=== PATIENT | female | born 1940 | race Caucasian/White ===

== ENCOUNTER 2019-04-19 12:22 | Inpatient (IN) | payer MEDICARE, OTHER, SELFPAY ==
[2019-04-19] VITALS (7 sets, daily range): BP systolic 101–117; BP diastolic 51–74; PULSE 51–75; RESP 17–20; TEMP 36.4–36.8; O2SAT 90–98; BMI 24.0
--- NOTE | 2019-04-19 12:27 | ED_ITS ---
Entered by Mima Connolly, acting as scribe for New Johnson DO HPI - General Adult General: Chief complaint: Abdominal Pain Stated complaint: LUNG/STOMACH CA Time Seen by Provider: 04/19/19 12:25 Source: patient Mode of arrival: EMS Limitations: no limitations History of Present Illness: HPI narrative: 78 yo Female presents to ED with complaint of abdominal pain. Pt states that she was taken out of the half-way yesterday by her family because the half-way wasn't taking care of her. Pt states that she has lung cancer and stomach cancer. Pt states that she is still getting radiation and chemotherapy treatments. Pt states that she has had radiation treatment most recently. Pt states that she went into the half-way because she can't walk and she can't breathe. Pt states that she lived at home by herself prior to that. Pt states that she can't live at home anymore. Pt states that she has been running a fever. Pt states that she was in a half-way in [place] and she won't go back there because they weren't taking care of her. Pt states that she wants something to slow her diarrhea. Pt states that she has coughed up some blood. MD complaint: abdominal pain, diarrhea Onset (ago): day(s) Location: abdomen Radiation: non-radiation Severity scale (1-10): 8 Quality: other (chronic) Relieving factors: none Exacerbating factors: none Associated symptoms: Reports dyspnea; Deny chest pain, malaise, nausea, rash or vomiting Treatments prior to arrival: none Review of Systems Const: Reports: fever and chills; Denies: body aches, change in appetite, fatigue or malaise ENMT: Denies: throat pain, ear pain, nasal discharge or nasal congestion Card: Denies: chest pain, edema, shortness of breath on exertion or shortness of breath when lying down Resp: Reports: shortness of breath; Denies: productive cough or non-productive cough GI: Reports: abdominal pain and diarrhea; Denies: nausea, vomiting, vomiting blood, coffee grounds in vomit, constipation, bloating, blood in stool or black tarry stool : Denies: flank pain, difficulty urinating, painful urination, urinary frequency or urinary urgency Skin/Breast: Denies: rash or itching PFSH ED PFSH: Medical History (Updated 04/21/19 @ 14:05 by New Johnson DO) CAD (coronary artery disease) CLL (chronic lymphocytic leukemia) COPD (chronic obstructive pulmonary disease) Lung cancer MELANIA (obstructive sleep apnea) PVD (peripheral vascular disease) Surgical History (Updated 04/19/19 @ 17:26 by Henrry Phelps MD) S/P appendectomy S/P CABG (coronary artery bypass graft) Status post peripheral artery angioplasty with insertion of stent Social History (Updated 04/19/19 @ 17:27 by Henrry Phelps MD) Smoking and tobacco status: former smoker Alcohol intake: never Substance/Drug Use: never Household members: family Housing: House Physical Exam Const: COMMON NORMALS: no apparent distress GENERAL APPEARANCE: cooperative and comfortable ORIENTATION/CONSCIOUSNESS: Yes awake, Yes oriented to person, Yes oriented to place and Yes oriented to time HENMT: COMMON NORMALS: normocephalic, head/scalp atraumatic, hearing grossly normal bilaterally, external ears normal, EAC's normal, TM's normal bilaterally, nasal mucous membranes and turbinates normal, moist oral mucous membranes and oropharynx normal HEAD & SCALP: normocephalic and atraumatic NOSE: nasal mucous membranes and turbinates normal EXTERNAL EAR: Yes external ears normal EXTERNAL AUDITORY CANAL: EAC's normal TYMPANIC MEMBRANE: TM's normal bilaterally Eye: COMMON NORMALS: PERRL, EOMs intact bilaterally, conjunctivae normal and no scleral icterus CONJUNCTIVA: Yes conjunctivae normal PUPIL: Yes PERRL Neck/C-Spine: COMMON NORMALS: full ROM, no lymphadenopathy, supple and no JVD Lymph: LYMPHATIC: no lymphadenopathy noted and no lymphedema noted Resp: COMMON NORMALS: normal respiratory effort, no retractions, no use of accessory muscles and clear to auscultation bilaterally AUSCULTATION: clear to auscultation bilaterally Cardio: COMMON NORMALS: no JVD, regular rate, regular rhythm and no murmurs RATE: regular rate RHYTHM: regular rhythm HEART SOUNDS: murmur systolic Intensity: IV/ GI: COMMON NORMALS: soft to palpation and no hepatosplenomegaly AUSCULTATION: Yes normoactive bowel sounds PALPATION: Yes soft, No tender, No guarding and Yes no hepatosplenomegaly Extremity: COMMON NORMALS: normal to inspection, normal capillary refill, no clubbing, cyanosis or edema, no calf tenderness and no pedal edema Neuro: SENSORIUM/ORIENTATION: Yes oriented to person, Yes oriented to place and Yes oriented to time Skin: COMMON NORMALS: no rashes or lesions noted GENERAL SKIN EXAM: no rashes or lesions noted Course ED course: Work-up shows hilar mass which patient related that she had had. She also has a previous known chronic lymphocytic leukemia. Chest x-ray shows pneumonia will go ahead and admit discussed with hospitalist Consultations: Consultation #1: Dr. Phelps, Hospitalist Time: 14:45 Vital Signs: Vital signs: Vital Signs Temperature 97.3 F L 04/21/19 11:30 Pulse Rate 73 04/21/19 11:30 Respiratory Rate 17 04/21/19 11:41 Blood Pressure 110/61 04/21/19 11:30 Pulse Oximetry 4 L 04/21/19 11:41 MDM - General Adult Lab Data: Labs: Lab Results 04/19/19 04/19/19 04/19/19 Range/Units 13:08 13:25 13:25 WBC 13.4 H (4.0-10.0) 10^3/ uL RBC 3.88 L (4.1-5.3) 10^6/u L Hgb 11.4 L (11.5-15.3) g/dL Hct 36.5 L (37.0-47.0) % MCV 94.1 (81-99) fL MCH 29.4 (28.0-34.0) pg MCHC 31.2 (30.0-36.0) g/dL RDW 16.4 H (12.1-15.1) % Plt Count 278 (130-400) 10^3/c mm MPV 10.5 H (7.4-10.4) fL Neut % (Auto) 88.1 % Lymph % (Auto) 4.2 % [place] % (Auto) 6.9 % Eos % (Auto) 0.1 % Baso % (Auto) 0.3 % Neut # (Auto) 11.8 H (1.8-7.7) 10^3/u L Lymph # (Auto) 0.6 L (0.8-4.8) 10^3/u L [place] # (Auto) 0.9 (0.2-0.9) 10^3/u L Eos # (Auto) 0.0 (0.0-0.8) 10^3/u L Baso # (Auto) 0.0 (0.0-0.1) 10^3/u L Nucleated RBC % (a uto) 0 % Nucleated RBCs # 0.0 /100WBC Sodium 138 (136-145) mmol/L Potassium 4.2 (3.5-5.1) mmol/L Chloride 100 (98-107) mmol/L Carbon Dioxide 26 (22-29) mmol/L Anion Gap 16.2 (5-19) BUN 25 H (8-23) mg/dL Creatinine 0.6 (0.5-0.9) mg/dL Glucose 96 (65-115) mg/dL Calcium 8.3 L (8.5-10.5) mg/dL Iron (37-145) ug/dL TIBC mcg/dl % Saturation (20-50) % Unsat Iron Binding (112-347) ug/dL Total Bilirubin 0.4 (0.15-1.2) mg/dL AST 20 (0-32) U/L ALT 16 (0-33) U/L Alkaline Phosphata se 94 (35-105) IU/L Total Protein 6.0 L (6.6-8.7) g/dL Albumin 2.4 L (3.5-5.2) g/dL Globulin 3.6 (1.3-4.6) g/dL Lipase 3 L (13-60) U/L Procalcitonin (0-0.5) ng/mL Urine Color Yellow (Yellow) Urine Appearance Clear (CLEAR) Urine pH 5.0 (5-7) Ur Specific Gravit y 1.020 (1.005-1.030) Urine Protein Trace (Negative) Urine Glucose (UA) Norm (Normal) Urine Ketones 1+ H (Negative) Urine Blood Neg (Negative) Urine Nitrate Negative (Negative) Urine Bilirubin 1+ H (NEGATIVE) Urine Urobilinogen Norm (Negative) mg/dL Ur Leukocyte Tonie ase Negative (Negative) Urine RBC 0-4 H (0-2) /hpf Urine WBC 0-4 H (0-5) /hpf Ur Squamous Epith Cells 15-25 H (0-5) Urine Bacteria Trace (NONE) Urine Mucus 1+ 02/ Range/Units 13:25 WBC (4.0-10.0) 10^3/ uL RBC (4.1-5.3) 10^6/u L Hgb (11.5-15.3) g/dL Hct (37.0-47.0) % MCV (81-99) fL MCH (28.0-34.0) pg MCHC (30.0-36.0) g/dL RDW (12.1-15.1) % Plt Count (130-400) 10^3/c mm MPV (7.4-10.4) fL Neut % (Auto) % Lymph % (Auto) % [place] % (Auto) % Eos % (Auto) % Baso % (Auto) % Neut # (Auto) (1.8-7.7) 10^3/u L Lymph # (Auto) (0.8-4.8) 10^3/u L [place] # (Auto) (0.2-0.9) 10^3/u L Eos # (Auto) (0.0-0.8) 10^3/u L Baso # (Auto) (0.0-0.1) 10^3/u L Nucleated RBC % (a uto) % Nucleated RBCs # /100WBC Sodium (136-145) mmol/L Potassium (3.5-5.1) mmol/L Chloride (98-107) mmol/L Carbon Dioxide (22-29) mmol/L Anion Gap (5-19) BUN (8-23) mg/dL Creatinine (0.5-0.9) mg/dL Glucose (65-115) mg/dL Calcium (8.5-10.5) mg/dL Iron 12 L (37-145) ug/dL TIBC 116 mcg/dl % Saturation 10.3 L (20-50) % Unsat Iron Binding 104 L (112-347) ug/dL Total Bilirubin (0.15-1.2) mg/dL AST (0-32) U/L ALT (0-33) U/L Alkaline Phosphata se (35-105) IU/L Total Protein (6.6-8.7) g/dL Albumin (3.5-5.2) g/dL Globulin (1.3-4.6) g/dL Lipase (13-60) U/L Procalcitonin 0.90 H (0-0.5) ng/mL Urine Color (Yellow) Urine Appearance (CLEAR) Urine pH (5-7) Ur Specific Gravit y (1.005-1.030) Urine Protein (Negative) Urine Glucose (UA) (Normal) Urine Ketones (Negative) Urine Blood (Negative) Urine Nitrate (Negative) Urine Bilirubin (NEGATIVE) Urine Urobilinogen (Negative) mg/dL Ur Leukocyte Tonie ase (Negative) Urine RBC (0-2) /hpf Urine WBC (0-5) /hpf Ur Squamous Epith Cells (0-5) Urine Bacteria (NONE) Urine Mucus Imaging Data^: CXR: Radiologist's impression: [place] [address] XRay Report Signed Patient: Ayala Kulkarni #: [id number] : 3Acct#:[id number] Age/Sex: 78 / FADM Date: 04/19/19 Loc: ERRoom/Bed: Attending Dr: Ordering Provider/Ordering MD: New Johnson DO Date of Service: 04/19/19 Procedure(s): XR chest 1V portable 32019 Accession Number(s): [id number] Report Number: [id number] WS: [id number] XR chest 1V portable [id number] REASON FOR EXAM: dyspnea/cough FINDINGS: An infiltrate is seen in the left lower lung extends to the periphery. Not seen on previous exam of October 23, 2016. There is coronary bypass changes noted. There is mild scoliotic curve convex to the left. XR/XR chest 1V portable [id number] IMPRESSION: Pneumonia left lower lung Dictated By:Renny Izaguirre DO Signed By:Renny Izaguirre DOSigned Date/Time:04/19/191314 DD/ 14 CTA Chest: Radiologist's impression: [place] [address] CT Scan Report Signed with Addenda Patient: Ayala Kulkarni #: [id number] : 3Acct#:[id number] Age/Sex: 78 / FADM Date: 04/19/19 Loc: [facility]/Bed: 259-[address]: Henrry Phelps MD Ordering Provider/Ordering MD: New Johnson DO Date of Service: 04/19/19 Procedure(s): CT angio chest PE protcl [id number] Accession Number(s): [id number] Report Number: [id number]/CT angio chest PE protcl [id number] CRITICAL RESULT: The study was personally discussed on the telephone with New Zaragoza on 04/19/2019 4:22 PM [facility]. The results were understood and acknowledged. Radiation Dose CTDIVOL = (mGy): DLP = 513.99 (mGy-cm) Addendum Dictated By: Lana Ferris MD Addendum Signed By: Lana Ferris MDSigned Date/Time:04/19/19 162 Addendum Cosigned By: PROCEDURE INFORMATION: Exam: CT Angiography Chest With Contrast Exam date and time: 04/19/2019 3:00 PM Age: 78 years old Clinical indication: Shortness of breath; Prior surgery; Surgery date: 6+ months; Surgery type: Aaa. Cabg; Additional info: Chest pain, dyspnea TECHNIQUE: Imaging protocol: Computed tomographic angiography of the chest with intravenous contrast. 3D rendering: MIP and/or 3D reconstructed images were created by the technologist. Total DLP: 513.99 mGy-cm Radiation optimization: All CT scans at this facility use at least one of these dose optimization techniques: automated exposure control; mA and/or kV adjustment per patient size (includes targeted exams where dose is matched to clinical indication); or iterative reconstruction. Contrast material: OMNI 350; Contrast volume: 95 ml; Contrast route: LT AC; COMPARISON: CT Chest/Abdomen/Pelvis wwo 04/02/2014 2:12 PM FINDINGS: Pulmonary arteries: Normal. No pulmonary emboli. Aorta: Unremarkable. No aortic aneurysm. No aortic dissection. Lungs: There are centrilobular and paraseptal emphysematous changes in the bilateral lungs. Multifocal pulmonary consolidation in the right upper and left lower lobes, consistent with pneumonia. This is most prominent in the left lower lobe. There is mucous plugging of bilateral lower lobe bronchi. Pleural space: Unremarkable. No pneumothorax. No pleural effusion. Heart: Cardiomegaly. There is reflux of contrast into the hepatic veins consistent with right heart strain. Multivessel atherosclerotic disease which involves the coronary arteries. Mediastinum: There are posterior sternotomy changes and postoperative changes in the mediastinum. There is a mediastinal/left perihilar mass lesion measuring 7.2 by 4.2 cm in the transverse/AP dimensions. This mass lesion effaces the left mainstem bronchus without definite invasion. This lesion cannot be differentiated from the adjacent left side of the esophageal mucosa. Liver: There is periportal edema which can be seen with volume overload, hepatitis, or cholangitis. Kidneys and ureters: Visualized aspect of the left kidney is atrophic. Stomach and bowel: There are air-fluid levels in dilated small bowel loops in the visualized upper abdomen consistent with small bowel obstruction. Lymph nodes: Unremarkable. No enlarged lymph nodes. Bones/joints: Unremarkable. No acute fracture. Soft tissues: Unremarkable. CT/CT angio chest PE protcl [id number] IMPRESSION: 1. There is a mediastinal/left perihilar mass lesion which cannot be differentiated from the left side of the esophagus most consistent with neoplasm. 2. Bilateral lung pneumonia. There is mucous plugging in lower lobe bronchi. 3. Cardiomegaly with signs of right heart strain. 4. There is periportal edema which can be seen with volume overload, hepatitis, or cholangitis. 5. There are air-fluid levels in dilated small bowel loops in the visualized upper abdomen consistent with small bowel obstruction. Radiation Dose CTDIVOL = (mGy): DLP = 513.99 (mGy-cm) Dictated By:Lana Ferris MD Signed By:Lana Ferrisigned Date/Time:04/19/191616 DD/ 15 Discharge Plan Discharge Patient Disposition: Admitted As Inpatient Admit Provider: Henrry Phelps Clinical Impression: Pneumonia, CLL (chronic lymphocytic leukemia), Lung cancer, COPD (chronic obstructive pulmonary disease), MELANIA (obstructive sleep apnea), Diarrhea Condition: Stable Interventions: ED Discharge Assessment Last Done: 04/19/19 16:23 Discharge Date/Time: 04/19/19 16:52 Coding Level of Care Code ED [employer] Services Officer for Chg Fwd Exam Comprehensive The documentation recorded by the Cathleen roman Carmen, accurately reflects the service I personally performed and the decisions made by Elizabeth miguel Curtis L, DO Apr 19, 2019 12:22
--- NOTE | 2019-04-19 13:00 | XR_ITS ---
WS: [id number] XR chest 1V portable [id number] REASON FOR EXAM: dyspnea/cough FINDINGS: An infiltrate is seen in the left lower lung extends to the periphery. Not seen on previous exam of October 23, 2016. There is coronary bypass changes noted. There is mild scoliotic curve convex to the left. XR/XR chest 1V portable [id number] IMPRESSION: Pneumonia left lower lung
[2019-04-19] MEDS: ondansetron 2 mg/ML SDV 2 mL 4 MG IVP (13:11)
[2019-04-19] MEDS: diphenoxylate/atropine Tablet 1 TAB PO (13:12)
[2019-04-19] MEDS: sodium chloride 0.9% 500 ML 999 ML IV (13:13)
[2019-04-19 13:34] LABS: Basophils % 0.3 %; Eosinophils % 0.1 %; Hematocrit 36.5 % (37.0-47.0); Hemoglobin 11.4 g/dL (11.5-15.3); Lymphocytes # 0.6 10^3/uL (0.8-4.8); Lymphocytes % 4.2 %; Mean Corpuscular HGB Conc 31.2 g/dL (30.0-36.0); Mean Corpuscular Hemoglobin 29.4 pg (28.0-34.0); Mean Corpuscular Volume 94.1 fL (81-99); Mean Platelet Volume 10.5 fL (7.4-10.4); Monocytes # 0.9 10^3/uL (0.2-0.9); Monocytes % 6.9 %; Neutrophils # 11.8 10^3/uL (1.8-7.7); Neutrophils % 88.1 %; Nucleated Red Blood Cells % 0 %; Platelet Count 278 10^3/cmm (130-400); Red Blood Count 3.88 10^6/uL (4.1-5.3); Red Cell Distribution Width 16.4 % (12.1-15.1); White Blood Count 13.4 10^3/uL (4.0-10.0)
[2019-04-19 13:44] LABS: Urine Appearance Clear (CLEAR); Urine Color Yellow (Yellow)
[2019-04-19 13:45] LABS: Add Urine Microscopic? YES; Bilirubin Urine 1+ (NEGATIVE); Blood Urine Neg (Negative); Glucose Urine UA Norm (Normal); Ketones Urine 1+ (Negative); Leukocyte Esterase Urine Negative (Negative); Nitrate Urine Negative (Negative); Protein Urine Trace (Negative); Urobilinogen Urine Norm (Negative)
[2019-04-19 13:52] LABS: Add Urine Culture? No; Bacteria Urine TRACE; Mucus Urine 1+; RBC Urine 0-4 /hpf (0-2); Squamous Epithelial Cell Urine 15-25 (0-5); WBC Urine 0-4 /hpf (0-5)
[2019-04-19 13:54] LABS: Alanine Aminotransferase 16 U/L (0-33); Albumin Level 2.4 g/dL (3.5-5.2); Alkaline Phosphatase 94 IU/L (35-105); Anion Gap 16.2 (5-19); Aspartate Amino Transferase 20 U/L (0-32); Blood Urea Nitrogen 25 mg/dL (8-23); Calcium 8.3 mg/dL (8.5-10.5); Carbon Dioxide 26 mmol/L (22-29); Chloride 100 mmol/L (98-107); Globulin 3.6 g/dL (1.3-4.6); Glucose 96 mg/dL (65-115); Lipase 3 U/L (13-60); Potassium 4.2 mmol/L (3.5-5.1); Sodium 138 mmol/L (136-145); Total Bilirubin 0.4 mg/dL (0.15-1.2)
[2019-04-19] MEDS: piperacillin-tazobactam 3.375 GM in sodium chloride 0.9% (plus) 50 ML IV ×2 (14:23→21:58)
[2019-04-19] MEDS: morphine 4 mg/mL SDV 1 mL 2 MG IVP ×2 (14:24→16:44)
--- NOTE | 2019-04-19 14:32 | CTR_ITS ---
PROCEDURE INFORMATION: Exam: CT Angiography Chest With Contrast Exam date and time: 04/19/2019 3:00 PM Age: 78 years old Clinical indication: Shortness of breath; Prior surgery; Surgery date: 6+ months; Surgery type: Aaa. Cabg; Additional info: Chest pain, dyspnea TECHNIQUE: Imaging protocol: Computed tomographic angiography of the chest with intravenous contrast. 3D rendering: MIP and/or 3D reconstructed images were created by the technologist. Total DLP: 513.99 mGy-cm Radiation optimization: All CT scans at this facility use at least one of these dose optimization techniques: automated exposure control; mA and/or kV adjustment per patient size (includes targeted exams where dose is matched to clinical indication); or iterative reconstruction. Contrast material: OMNI 350; Contrast volume: 95 ml; Contrast route: LT AC; COMPARISON: CT Chest/Abdomen/Pelvis wwo 04/02/2014 2:12 PM FINDINGS: Pulmonary arteries: Normal. No pulmonary emboli. Aorta: Unremarkable. No aortic aneurysm. No aortic dissection. Lungs: There are centrilobular and paraseptal emphysematous changes in the bilateral lungs. Multifocal pulmonary consolidation in the right upper and left lower lobes, consistent with pneumonia. This is most prominent in the left lower lobe. There is mucous plugging of bilateral lower lobe bronchi. Pleural space: Unremarkable. No pneumothorax. No pleural effusion. Heart: Cardiomegaly. There is reflux of contrast into the hepatic veins consistent with right heart strain. Multivessel atherosclerotic disease which involves the coronary arteries. Mediastinum: There are posterior sternotomy changes and postoperative changes in the mediastinum. There is a mediastinal/left perihilar mass lesion measuring 7.2 by 4.2 cm in the transverse/AP dimensions. This mass lesion effaces the left mainstem bronchus without definite invasion. This lesion cannot be differentiated from the adjacent left side of the esophageal mucosa. Liver: There is periportal edema which can be seen with volume overload, hepatitis, or cholangitis. Kidneys and ureters: Visualized aspect of the left kidney is atrophic. Stomach and bowel: There are air-fluid levels in dilated small bowel loops in the visualized upper abdomen consistent with small bowel obstruction. Lymph nodes: Unremarkable. No enlarged lymph nodes. Bones/joints: Unremarkable. No acute fracture. Soft tissues: Unremarkable. CT/CT angio chest PE protcl [id number] IMPRESSION: 1. There is a mediastinal/left perihilar mass lesion which cannot be differentiated from the left side of the esophagus most consistent with neoplasm. 2. Bilateral lung pneumonia. There is mucous plugging in lower lobe bronchi. 3. Cardiomegaly with signs of right heart strain. 4. There is periportal edema which can be seen with volume overload, hepatitis, or cholangitis. 5. There are air-fluid levels in dilated small bowel loops in the visualized upper abdomen consistent with small bowel obstruction. Radiation Dose CTDIVOL = (mGy): DLP = 513.99 (mGy-cm)
[2019-04-19] MEDS: levofloxacin-dextrose 5 % 750 MG/150 ML PREMIX 150 MG IV (14:50)
[2019-04-19] MEDS: iohexol 350 mg/mL 100 mL Btl IV (15:49)
[2019-04-19 16:16] LABS: Iron 12 ug/dL (37-145); Percent Saturation 10.3 % (20-50); Total Iron Binding Capacity 116 mcg/dl; Unsaturated Iron Binding 104 ug/dL (112-347)
[2019-04-19 16:26] LABS: Influenza A by IFA Negative (Negative); Influenza B by IFA Negative (Negative)
--- NOTE | 2019-04-19 17:09 | PM.HP ---
Providers/Chief Complaint Admitting Physician: Henrry Phelps MD Chief Complaint: LUNG/STOMACH CA History of Present Illness Ayala Kulkarni is a 78 year old female with past medical history of CAD post multiple PCI and CABG, peripheral arterial disease both peripheral angioplasty, COPD, obstructive sleep apnea, hypertension, CLL, hypothyroidism, dyslipidemia, fibromyalgia who as per the family was recently diagnosed of a lung cancer 1 month ago and is undergoing chemotherapy post 2 cycles with last cycle 3 weeks ago, radiation therapy post 5 cycles will last treatment 2 days ago at [facility]. As per the family patient was at a senior living in [place]. 2 days ago from where she was discharged as per family's request and was brought home at the think she was not being properly taken care of at the facility. Patient's sister who is her caregiver and POA brought her to the ER today as she was not able to take care of her at home. As per patient she has been getting more and more weak progressively for last 7 to 10 days and is been getting worse associated with cough with expectoration which as per the patient and family have been stable for last 2 weeks along with shortness of breath on exertion. Expectoration is mostly not foul-smelling yellow-tinged with occasional hemoptysis with last hemoptysis yesterday morning. As per the family patient's appetite has also been very poor along with nausea but no recent vomiting. As per the patient patient is also having multiple episodes of diarrhea which are mostly not foul-smelling, not bloodstained, watery and has been going on for over 10 days along with occasional abdominal pain and abdominal distention. She denies of having any dysuria, headache, palpitations, chest pain, dizziness, loss of consciousness, syncope but has been having mild dizziness on standing up along with some presyncope. Denies of having any recent sick contacts, recent travel, leg pain, leg cramps, swelling in legs. Review of Systems Const: Reports: change in appetite and daytime sleepiness; Denies: fever, chills, body aches, malaise, night sweats, diaphoresis, change in sleep pattern or snoring Eyes: Denies: change in vision, blurry vision, photophobia, eye discomfort or eye discharge ENMT: Denies: throat pain, enlarged tonsils, hoarseness, mouth pain, oral sores/lesions, dry mouth, tinnitus, nasal congestion or post nasal drip Card: Reports: lightheadedness and shortness of breath on exertion; Denies: chest pain, palpitations, irregular heart rhythm, edema, swelling of feet/ankles, syncope, pre-syncope, shortness of breath when lying down, leg pain with exertion or bluish discoloration of hands/feet Resp: Reports: shortness of breath, productive cough and coughing up blood; Denies: non-productive cough, wheezing, stridor, pain on inspiration, change in phlegm color or chest congestion GI: Reports: abdominal pain, nausea, diarrhea and bloating; Denies: vomiting, vomiting blood, coffee grounds in vomit, difficulty swallowing, heartburn/indigestion, constipation, cramping, change in bowel habits, painful bowel movements, blood in stool or black tarry stool : Denies: flank pain, painful urination, urinary frequency, urinary urgency, urinary hesitancy, nighttime urination or blood in urine Musc: Denies: neck pain, back pain, extremity pain, joint pain, joint swelling, redness, joint stiffness or limited range of motion Neuro: Denies: headache, numbness in extremities, weakness in extremities, changes in sensation, lack of coordination, difficulty walking, frequent falls, dizziness, vertigo, confusion, slurred speech, difficulty communicating thoughts or seizure-like activity Psych: Denies: anxiety, depression, mood swings, panic attacks, hopelessness or irritability Endo: Denies: excessive urination, excessive thirst, tired all the time, cold intolerance, excessive sweating, flushing or heat intolerance Rangel/Lymph: Denies: easy bruising or easy bleeding All/Imm: Denies: tongue swelling, facial swelling or acute wheezing Medications/Allergies Home Medications Medication Instructions Recorded Confirmed Last Taken Type albuterol sulfate 1 puff INHALATION Q4H PRN 04/19/19 04/19/19 Unknown History albuterol sulfate 2.5 mg INHALATION Q4H PRN 04/19/19 04/19/19 Unknown History amlodipine 10 mg PO DAILY 04/19/19 04/19/19 Unknown History aripiprazole 2 mg PO DAILY 04/19/19 04/19/19 Unknown History clopidogrel 75 mg PO DAILY 04/19/19 04/19/19 Unknown History diltiazem HCl 120 mg PO DAILY 04/19/19 04/19/19 Unknown History ergocalciferol (vitamin D2) 1,250 mcg PO Q7D 04/19/19 04/19/19 Unknown History fluticasone propion-salmeterol 1 puff INHALATION BID 04/19/19 04/19/19 Unknown History [Advair HFA] hydrocodone-acetaminophen 1 tab PO Q6H PRN 04/19/19 04/19/19 Unknown History isosorbide mononitrate 30 mg PO DAILY 04/19/19 04/19/19 Unknown History levothyroxine 88 mcg PO DAILY 04/19/19 04/19/19 Unknown History lisinopril 10 mg PO DAILY 04/19/19 04/19/19 Unknown History nitroglycerin 0.4 mg SUBLINGUAL Q5M PRN 04/19/19 04/19/19 Unknown History pantoprazole 40 mg PO BID 04/19/19 04/19/19 Unknown History potassium chloride 20 meq PO DAILY 04/19/19 04/19/19 Unknown History ranolazine 500 mg PO BID 04/19/19 04/19/19 Unknown History rosuvastatin 10 mg PO DAILY 04/19/19 04/19/19 Unknown History venlafaxine 100 mg PO DAILY 04/19/19 04/19/19 Unknown History Allergies Allergy/AdvReac Type Severity Reaction Status Date / Time atorvastatin [From Lipitor] Allergy Unknown Unknown Verified 03/18/19 09:30 codeine Allergy Unknown unknown Verified 03/18/19 09:30 PFSH Acute PFSH: Medical History (Updated 04/19/19 @ 17:26 by Henrry Phelps MD) CAD (coronary artery disease) CLL (chronic lymphocytic leukemia) COPD (chronic obstructive pulmonary disease) Lung cancer MELANIA (obstructive sleep apnea) PVD (peripheral vascular disease) Surgical History (Updated 04/19/19 @ 17:26 by Henrry Phelps MD) S/P appendectomy S/P CABG (coronary artery bypass graft) Status post peripheral artery angioplasty with insertion of stent Social History (Updated 04/19/19 @ 17:27 by Henrry Phelps MD) Smoking and tobacco status: former smoker Alcohol intake: never Substance/Drug Use: never Household members: family Housing: House Vitals/I&O/Wt Last Vital Signs Temp 97.6 F 04/19/19 12:31 Pulse 72 04/19/19 16:23 Resp 17 04/19/19 16:44 BP 114/51 04/19/19 16:23 Pulse Ox 97 04/19/19 16:44 Weight last 48 hrs Weight 61.689 kg Physical Exam Narrative: EXAM NARRATIVE: General: No acute distress, AO x3, dehydrated HEENT: PERRLA, pupils bilaterally equal and reactive Chest: b/l bronchial breath sounds, Ant> POst, Left more thn right, Left upper zone and right lower zone and left lower zone with coarse crackles, Normal vesicular breath sounds, no added sounds, equal good air entry bilaterally CVS: S1-S2 regular,PSM at apex, apex displaced, no tachycardia, no gallops, no rubs Abdomen: Soft, distended, nontender, no organomegaly, bowel sounds present Neuro: No focal deficits, no facial deformity, AO x3, power 5/5 in all limbs Data : 04/19/19 13:25 04/19/19 13:25 Micro: Microbiology 04/19/19 15:39 Legionella Urinary Antigen - Final Urine Catheterized 04/19/19 15:08 Stool Lactoferrin - Final Stool Occult Blood (FIT) - Final 04/19/19 15:30 Blood Culture - Preliminary Blood SPECIMEN COLLECTED 04/19/19 15:30 Blood Culture - Preliminary Blood SPECIMEN COLLECTED A&P Assessment and plan (1) Weakness: Status: Acute Code(s): R53.1 - Weakness (2) Diarrhea: Status: Acute Code(s): R19.7 - Diarrhea, unspecified (3) Lung cancer: Status: Acute Code(s): C34.90 - Malignant neoplasm of unspecified part of unspecified bronchus or lung (4) COPD (chronic obstructive pulmonary disease): Status: Acute Code(s): J44.9 - Chronic obstructive pulmonary disease, unspecified (5) MELANIA (obstructive sleep apnea): Status: Acute Code(s): G47.33 - Obstructive sleep apnea (adult) (pediatric) (6) CAD (coronary artery disease): Status: Acute Code(s): I25.10 - Atherosclerotic heart disease of [place] coronary artery without angina pectoris (7) CLL (chronic lymphocytic leukemia): Status: Acute Code(s): C91.10 - Chronic lymphocytic leukemia of B-cell type not having achieved remission Additional A&P Information Weakness: Most likely multifactorial. Cannot rule out pneumonia given the history of recent lung cancer for which she is getting chemo and radiation therapy. Along with multiple episodes of diarrhea, generalized severe deconditioning, severe protein energy malnutrition. Diarrhea: Infectious vs 2/2 chemo-radiation Send stool studies for lactoferrin, stool for occult blood, C. difficile, enteric panel for bacteria and parasite. IV fluids at 100 cc/h with normal saline. If C. difficile is negative can give her Imodium. Possible pneumonia/recent diagnosis of lung cancer/COPD: We will need to get documents from [facility] regarding her diagnosis, chemoradiation therapy. Patient already received Zosyn and levofloxacin in the ER. We will stop levofloxacin. We will start patient on vancomycin as patient was recently hospitalized, Zosyn, azithromycin on renally dosed. Blood cultures already sent. We will also send for urine Legionella, procalcitonin, bacterial antigen in the urine, lactate with reflex, sputum culture and antigen. We will request for CT chest with contrast given the hemoptysis to rule out any mass invasion into the bronchus versus mass-effect versus mucous plugs versus multiple infiltrates. DuoNeb's [id number], budesonide twice daily, albuterol as needed every 2 hours. We will de-escalate antibiotics as per the culture results. Oxygen supplementation keeping saturation over 90%. CAD: S/P CABG and multiple PCI: Continue with home dose of statin, aspirin. Will get echocardiogram to get ejection fraction in view of recent chemo-radiation therapy. Hypertension: For now we will hold off on all antihypertensives to prevent hypotension as patient looks severely dehydrated.. We will continue Cardizem but will change it in 2 divided doses every 6 hours to avoid tachycardia. Telemetry monitoring. Severe protein energy malnutrition: We will add Glucerna to the diet with every meals. Dietary consultation. CC consult: For SNF placement as sister is not able to take care of her at home. CODE STATUS: Discussed in detail with the patient and family members at bedside. Patient states she would like to be DNR/DNI. Her sister would be her POA. Cardiac diet. Lovenox for DVT prophylaxis. Protonix for the PUD prophylaxis Attestations Medical Necessity Statement*: > 2MN for severe weakness, diarrhea, lung cancer, possible PNA Time Spent in Patient Care: Greater than 35 minutes (>than 50% of time spent in counselling and/or direct pt care on unit). Coding Level of Care Code Acute Client Consultant for Chg Fwd Diagnoses Weakness R53.1 Diarrhea R19.7 Lung cancer C34.90 COPD (chronic obstructive pulmonary disease) J44.9 MELANIA (obstructive sleep apnea) G47.33 CAD (coronary artery disease) I25.10 CLL (chronic lymphocytic leukemia) C91.10
[2019-04-19] MEDS: D5-NS 0.45% + KCL 20 mEq 20 MEQ/1,000 ML BAG 100 MEQ IV (17:21)
--- NOTE | 2019-04-19 18:01 | PC.NURSE ---
Home medications: List is completed as best as it can be. Pt has recently left a intermediate, [facility], in [place] per family. They stated she took her medications there. Medical power of document review attorney, Latrice Jimenez, sister, unable to clarify pt's medications , or what has been taken yesterday or today. Pt hard of hearing and a poor historian as well
[2019-04-19] MEDS: sodium chloride 3.5% neb 4 mL Neb INHALATION (20:21)
[2019-04-19] MEDS: budesonide 0.5 mg/2 mL Neb INHALATION (20:21)
[2019-04-19] MEDS: ipratropium-albuterol 3 mL Neb INHALATION (20:21)
[2019-04-19] MEDS: dilTIAZem 30 mg Tablet PO (20:33)
[2019-04-19] MEDS: enoxaparin 40 mg/0.4 mL Syringe SUBCUT (20:33)
[2019-04-19] MEDS: HYDROcodone-acetaminophen 10-325 mg Tablet 1 TAB PO (20:33)
[2019-04-19] MEDS: docusate sodium 100 mg Capsule PO (20:33)
[2019-04-19] MEDS: sodium chloride 0.9% 1,000 ML 75 ML IV (20:34)
[2019-04-19] MEDS: famotidine 20 mg/2 mL INJ IVP (20:35)
[2019-04-19] MEDS: vancomycin 1,000 MG in sodium chloride 0.9% 250 ML 250 MG IV (20:49)
--- NOTE | 2019-04-19 22:27 | PC.NURSE ---
patient up to bsc, noted fresh red blood when cleaning her. upon further assessment noted 3 hemmorrhoids protruding from her rectum slightly bleeding. Notified Dr. Felix and asked for some preparation H to apply to her rectum, she agreed.
[2019-04-19] MEDS: phenyleph-mineral oil-petrolat Oint 28 gm 1 APPLIC PR (22:51)
[2019-04-20] VITALS (14 sets, daily range): BP systolic 103–125; BP diastolic 64–86; PULSE 57–92; RESP 16–21; TEMP 36.3–36.6; O2SAT 91–96
[2019-04-20] MEDS: dilTIAZem 30 mg Tablet PO ×4 (02:14→20:17)
[2019-04-20] MEDS: HYDROcodone-acetaminophen 10-325 mg Tablet 1 TAB PO ×3 (02:14→20:18)
--- NOTE | 2019-04-20 02:33 | PC.NURSE ---
The last two bowel movements the patient has had have been yellowish brown, mucoid, liquid with a very raunchy odor. contacting Dr. Varela to see if we can get an order for a stool sample.
[2019-04-20] MEDS: ipratropium-albuterol 3 mL Neb INHALATION ×4 (03:48→20:45)
[2019-04-20] MEDS: sodium chloride 3.5% neb 4 mL Neb INHALATION ×4 (03:48→20:45)
[2019-04-20] MEDS: piperacillin-tazobactam 3.375 GM in sodium chloride 0.9% (plus) 50 ML IV ×3 (05:17→20:17)
[2019-04-20 05:58] LABS: Basophils % 0.3 %; Hematocrit 35.9 % (37.0-47.0); Hemoglobin 11.4 g/dL (11.5-15.3); Lymphocytes # 0.8 10^3/uL (0.8-4.8); Lymphocytes % 6.2 %; Mean Corpuscular HGB Conc 31.8 g/dL (30.0-36.0); Mean Corpuscular Hemoglobin 29.9 pg (28.0-34.0); Mean Corpuscular Volume 94.2 fL (81-99); Mean Platelet Volume 11.2 fL (7.4-10.4); Monocytes # 1.2 10^3/uL (0.2-0.9); Monocytes % 9.5 %; Neutrophils # 10.4 10^3/uL (1.8-7.7); Neutrophils % 83.6 %; Nucleated Red Blood Cells % 0 %; Platelet Count 234 10^3/cmm (130-400); Red Blood Count 3.81 10^6/uL (4.1-5.3); Red Cell Distribution Width 16.7 % (12.1-15.1); White Blood Count 12.5 10^3/uL (4.0-10.0)
[2019-04-20] MEDS: morphine 4 mg/mL SDV 1 mL 2 MG IVP ×4 (06:21→21:35)
[2019-04-20 07:37] LABS: Alanine Aminotransferase 16 U/L (0-33); Albumin Level 2.5 g/dL (3.5-5.2); Alkaline Phosphatase 103 IU/L (35-105); Anion Gap 20.4 (5-19); Blood Urea Nitrogen 19 mg/dL (8-23); Carbon Dioxide 19 mmol/L (22-29); Chloride 102 mmol/L (98-107); Globulin 2.8 g/dL (1.3-4.6); Glucose 68 mg/dL (65-115); Magnesium 1.7 mg/dL (1.7-2.3); Potassium 4.4 mmol/L (3.5-5.1); Sodium 137 mmol/L (136-145); Total Bilirubin 0.3 mg/dL (0.15-1.2); Total Protein 5.3 g/dL (6.6-8.7)
[2019-04-20 07:39] LABS: Aspartate Amino Transferase 23 U/L (0-32)
[2019-04-20 08:00] LABS: Thyroid Stimulating Hormone 12.43 uIU/mL (0.27-4.20)
[2019-04-20 08:15] LABS: Prealbumin 7.2 mg/dL (20-40)
[2019-04-20] MEDS: budesonide 0.5 mg/2 mL Neb INHALATION ×2 (08:49→20:45)
[2019-04-20] MEDS: famotidine 20 mg/2 mL INJ IVP ×2 (09:06→20:21)
[2019-04-20] MEDS: nicotine 21 mg Patch 1 PATCH TRANSDERMA (09:07)
[2019-04-20] MEDS: clopidogrel 75 mg Tablet PO (09:07)
[2019-04-20] MEDS: levothyroxine 88 mcg Tablet PO (09:07)
[2019-04-20] MEDS: ARIPiprazole 2 mg Tablet PO (09:07)
[2019-04-20] MEDS: ranolazine (12HR) 500 mg Tablet PO ×2 (09:07→17:28)
[2019-04-20] MEDS: phenyleph-mineral oil-petrolat Oint 28 gm 1 APPLIC PR ×4 (09:08→20:20)
[2019-04-20] MEDS: azithromycin 500 MG in sodium chloride 0.9% 250 ML 250 MG IV (09:08)
[2019-04-20] MEDS: sodium chloride 0.9% 1,000 ML 75 ML IV ×2 (09:08→23:07)
--- NOTE | 2019-04-20 12:02 | PC.CHAP ---
Pastoral Care Encounter/Spiritual Assessment Type of Contact [] Declined shield operator visit [] Patient/Family/Request visit [] Outpatient visit [] Follow-up visit [] Physician referral [] Code/Alert [] Routine visit [] Staff referral [] Actively dying [] Patient sleeping [] Family support [] [] Out of room [] Palliative care [] [] Receiving care in room [] Pre-surgical visit [] Trauma [] Long length of stay [] ICU visit [] Other: Relational/Emotional Strength [x] Patient feels connected with others/family/visitors/staff [] Distress [] Loneliness/isolation [] Abandonment Spirituality of Patient [x] Person of Arianna [] Attends Yazidi of their Arianna [x] Believes in Prayer [] Reads Bible or Quaker materials [] There are Spiritual issues to be addressed Raisin Washer Interventions x] Prayer [x] Active listening [x] Non-anxious presence [x] Spiritual/emotional support [] Crisis/trauma care [] Spiritual counseling [] Bereavement support [] Provided bereavement packet [] Provided Bible/devotional materials [] Provided toy/stuffed animal, coloring book to patient or family member [] Provided Communion [] Anointing/[place] [] Salvation [] Completed spiritual assessment [] Other: Impact on Illness or Injury [] Angry [] Fearful [] Anxious [] Often cries [] Exhaustion [] Unable to work [] Unable to attend jew [] Unable to walk/stand [] Unable to read [] Unable to drive [] Unable to eat/drink [] Unable to sleep [] Unable to be with family [] Patient intubated [] Other: Summary Chaplains prayed with patient. Time spent with patient 15 minutes.
[2019-04-20] MEDS: vancomycin 1,000 MG in sodium chloride 0.9% 250 ML 250 MG IV (12:29)
--- NOTE | 2019-04-20 12:38 | CTR_ITS ---
PROCEDURE INFORMATION: Exam: CT Abdomen And Pelvis With Contrast Exam date and time: 04/20/2019 4:40 PM Age: 78 years old Clinical indication: Abdominal pain; Generalized; Prior surgery; Surgery date: 6+ months; Surgery type: Cabg, aaa, appy; Additional info: R/O sbo, diarrhea, on radition therapy TECHNIQUE: Imaging protocol: Computed tomography of the abdomen and pelvis with intravenous contrast. Total DLP: 763.05 mGy-cm Radiation optimization: All CT scans at this facility use at least one of these dose optimization techniques: automated exposure control; mA and/or kV adjustment per patient size (includes targeted exams where dose is matched to clinical indication); or iterative reconstruction. Contrast material: OMNI 300; Contrast volume: 95 ml; Contrast route: LT AC; COMPARISON: CT abdomen pelvis w con* [id number] 11/28/2017 10:56 AM FINDINGS: Lungs: There is a partially visualized masslike lesion along the posterior medial aspect of the left lung base. Adjacent patchy lung consolidation is consistent with pneumonia.Streaky densities at the lung bases are most consistent with scarring and/or atelectasis. Mediastinum: There are post sternotomy changes and postoperative changes in the anterior mediastinum. Liver: There is periportal edema which can be seen with volume overload, hepatitis, or cholangitis. Gallbladder and bile ducts: The gallbladder has been removed. Pancreas: Normal. No ductal dilation. Spleen: Normal. No splenomegaly. Adrenals: Normal. No mass. Kidneys and ureters: Left kidney is atrophic. There is a subcentimeter cyst in the left kidney with benign features. Follow-up is not necessary. Stomach and bowel: There are air-fluid levels in multiple dilated proximal and mid small bowel loops consistent with small bowel obstruction. Distal small bowel is collapsed. There is a small amount of air and fluid scattered throughout the colon. A small amount of air and stool is present in the rectal vault. Appendix: There has been an appendectomy. Intraperitoneal space: There is a small amount of free intraperitoneal fluid. Vasculature: Aorta bi-iliac endograft stent. 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 Multivessel atherosclerotic disease which involves the coronary arteries. Lymph nodes: Unremarkable. No enlarged lymph nodes. Bladder: Unremarkable as visualized. Reproductive: Unremarkable as visualized. Bones/joints: Unremarkable. No acute fracture. Soft tissues: Small fat containing periumbilical hernia. CT/CT abdomen pelvis w con* [id number] IMPRESSION: 1. Findings as stated above are consistent with a distal small-bowel obstruction. 2. There is left lower lobe pneumonia. A partially visualized masslike lesion is present at the posterior medial aspect of the left lung base. This was more optimally visualized on the prior CT chest angiogram. Please see that report. 3. Aorta bi-iliac endograft stent. 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 COMMENTS: Consistent with the [employer]'s Incidental Findings Committee white paper (J Am Derick Radiol 2018): Any incidental cystic renal lesion classified in this report as too small to characterize or simple appearing is likely a benign cyst. No follow-up imaging is recommended for these lesions per consensus recommendations based on imaging criteria. Radiation Dose CTDIVOL = (mGy): DLP = 763.05 (mGy-cm)
[2019-04-20 13:37] LABS: Free T4 Free Thyroxine 0.54 ng/dL (0.82-1.77); T3 Free 0.9 PG/ML (2.0-4.4)
--- NOTE | 2019-04-20 15:49 | PM.PN ---
Subjective Subjective: Interval history: No acute events overnight. This morning on evaluation patient is lying in bed complaining of pain in her back. She is also complaining of pain in her belly which she states has been going on for some time. She complains of nausea but no vomiting. She has had 2 episodes of watery diarrhea since last night. She denies of having any dizziness. She is also complaining of cough with mild expectoration but has not gotten worse. Labs, CT chest results appreciated. Documents from [facility] regarding previous hospitalization still awaited. Vitals/I&O/Wt Last Vital Signs Temp 97.4 F L 04/20/19 11:40 Pulse 81 04/20/19 15: Resp 16 04/20/19 15:19 BP 125/86 04/20/19 11:40 Pulse Ox 96 04/20/19 15:19 04/20/19 04/20/19 04/20/19 06:59 14:59 22:59 Intake Total 110 / 360 1112.5 / 1112.5 Balance 110 / -90 1112.5 / 1112.5 Weight last 48 hrs Weight 62.284 kg Weight 61.689 kg Physical Exam Narrative: EXAM NARRATIVE: General: No acute distress, AO x3, dehydrated HEENT: PERRLA, pupils bilaterally equal and reactive Chest: b/l bronchial breath sounds, Ant> POst, Left more thn right, Left upper zone and right lower zone and left lower zone with coarse crackles, Normal vesicular breath sounds, no added sounds, equal good air entry bilaterally CVS: S1-S2 regular,PSM at apex, apex displaced, no tachycardia, no gallops, no rubs Abdomen: Soft, distended, nontender, no organomegaly, bowel sounds present Neuro: No focal deficits, no facial deformity, AO x3, power 5/5 in all limbs Data : 04/20/19 05:33 04/20/19 06:00 Micro: Microbiology 04/19/19 15:30 Blood Culture - Preliminary Blood NEGATIVE TO DATE 04/19/19 15:30 Blood Culture - Preliminary Blood NEGATIVE TO DATE 04/19/19 15:08 Stool Lactoferrin - Final Stool Enteric Pathogens (PCR) - Final Parasite Antigen Panel - Final Occult Blood (FIT) - Final 04/19/19 15:55 MRSA Culture - Final Nose 04/19/19 15:08 C.difficile Toxin B Gene (PCR) - Final Stool 04/19/19 15:39 Bacterial Antigens - Final Urine,Clean Catch 04/19/19 15:39 Legionella Urinary Antigen - Final Urine Catheterized A&P Assessment and plan (1) Weakness: Status: Acute Code(s): R53.1 - Weakness (2) Diarrhea: Status: Acute Code(s): R19.7 - Diarrhea, unspecified (3) Lung cancer: Status: Acute Code(s): C34.90 - Malignant neoplasm of unspecified part of unspecified bronchus or lung (4) COPD (chronic obstructive pulmonary disease): Status: Acute Code(s): J44.9 - Chronic obstructive pulmonary disease, unspecified (5) MELANIA (obstructive sleep apnea): Status: Acute Code(s): G47.33 - Obstructive sleep apnea (adult) (pediatric) (6) CAD (coronary artery disease): Status: Acute Code(s): I25.10 - Atherosclerotic heart disease of [place] coronary artery without angina pectoris (7) CLL (chronic lymphocytic leukemia): Status: Acute Code(s): C91.10 - Chronic lymphocytic leukemia of B-cell type not having achieved remission Additional A&P Information Weakness: Most likely multifactorial. Cannot rule out pneumonia given the history of recent lung cancer for which she is getting chemo and radiation therapy. Along with multiple episodes of diarrhea, generalized severe deconditioning, severe protein energy malnutrition. Diarrhea: Infectious vs 2/2 chemo-radiation Stool studies negative, except positive for lactoferrin and blood. Hb stable. CT chest concerning for possible SBO. Will check CT abdomen. IV fluids at 100 cc/h with normal saline. If Ct abdomen negative can give her Imodium. Possible pneumonia/recent diagnosis of lung cancer/COPD: We will need to get documents from [facility] regarding her diagnosis, chemoradiation therapy. C/w Vanc and Zosyn for now. Will de-escalate as per Cx results. Sputum Cx awaited. BCx negative prelim, procal elevated. Legionella and Bacterial antigen so will d/c Azithromycin. CT chest concerning for mediastinal/left hilar perihilar mass which cannot be differentiated from left side of the esophagus which is most likely neoplastic and the mass effaces left main bronchus without definite invasion along with bilateral pneumonia and mucous plugging of bilateral lower lobe. DuoNebs normal clock, budesonide twice daily, saline nebulizations along with duo nebs, flutter valve. We will repeat chest x-ray tomorrow morning. If patient's oxygen requirement is increasing or if patient is not improving will have to consult pulmonology for possible bronchoscopy. Pneumonia and mucous plug most likely due to mass-effect. Oxygen supplementation keeping saturation over 90%. CAD: S/P CABG and multiple PCI: Continue with home dose of statin, aspirin. Echocardiogram concerning for a normal EF of 60% with mild pulmonary hypertension with RVSP of 40 with dilated LA, RA with mild ,AI. C/w IVF- NS @ 100 cc/hr Hypertension: For now we will hold off on all antihypertensives to prevent hypotension as patient looks severely dehydrated. BP stable. Patient had 2 episodes of heart rate 1 g in 50s so we will decrease Cardizem from 60 mg, 4 times daily to 60 mg, 3 times daily. Telemetry monitoring. Severe protein energy malnutrition: We will add Glucerna to the diet with every meals. Dietary consultation. CC consult: For SNF placement as sister is not able to take care of her at home. CODE STATUS: Discussed in detail with the patient and family members at bedside. Patient states she would like to be DNR/DNI. Her sister would be her POA. NPO till CT abdomen done. Lovenox for DVT prophylaxis. Protonix for the PUD prophylaxis. Gaurded prognosis Attestations Medical Necessity Statement*: Continued hospitalization because of bilateral pneumonia, acute hypoxic respiratory failure Time Spent in Patient Care: Greater than 35 minutes Coding Level of Care Code Acute Cylinder Head Assembler for [facility] Fwd Diagnoses Weakness R53.1 Diarrhea R19.7 Lung cancer C34.90 COPD (chronic obstructive pulmonary disease) J44.9 MELANIA (obstructive sleep apnea) G47.33 CAD (coronary artery disease) I25.10 CLL (chronic lymphocytic leukemia) C91.10
[2019-04-20] MEDS: iohexol 300 mg/mL 100 mL Btl IV (16:54)
[2019-04-20] MEDS: enoxaparin 40 mg/0.4 mL Syringe SUBCUT (17:28)
--- NOTE | 2019-04-20 17:51 | USCV_ITS ---
Shad Ericritu Age: 78 Gender: F : 1940 Exam Date: 04/20/2019 10:42 Ordering Phys: Henrry Phelps MD Technologist: Wade Goodrich Exam Location: [facility] [place] Indication: CAD ? CARDIOMYO BP: 125 / 76 HR: 56 Rhythm: Sinus Technical Quality: Good MEASUREMENTS (Male / Female) Normal Values 2D ECHO LV Diastolic Diameter PLAX 4.5 cm 4.2 - 5.9 / 3.9 - 5.3 cm LV Systolic Diameter PLAX 3.3 cm IVS Diastolic Thickness 0.9 cm 0.6 - 1.0 / 0.6 - 0.9 cm IVS Systolic Thickness 0.9 cm LVPW Diastolic Thickness 1.0 cm 0.6 - 1.0 / 0.6 - 0.9 cm LVPW Systolic Thickness 1.1 cm LVOT Diameter 2.1 cm LV Ejection Fraction 2D Teich 52.3 % LV Ejection Fraction MOD 2C 39.0 % LV Ejection Fraction 2C AL 40.5 % LA Diameter 3.9 cm LA Width 4.8 cm LA Height 5.7 cm RA Width 4.1 cm RA Height 5.6 cm Aorta at Sinotubular Diameter 2.5 cm M-MODE LV Diastolic Diameter MM 5.4 cm 4.2 - 5.9 / 3.9 - 5.3 cm LV Systolic Diameter MM 3.4 cm LV Ejection Fraction MM Teich 67.1 % IVS Diastolic Thickness MM 0.7 cm 0.6 - 1.0 / 0.6 - 0.9 cm IVS Systolic Thickness MM 1.3 cm LVPW Diastolic Thickness MM 0.9 cm 0.6 - 1.0 / 0.6 - 0.9 cm LVPW Systolic Thickness MM 1.7 cm RV Diastolic Diameter MM 1.5 cm Aortic Annulus Diameter 4.0 cm LA Ao Ratio MM 1.0 MV E Point Septal Separation 1.9 cm DOPPLER AV Peak Velocity 291.0 cm/s LVOT Peak Velocity 91.0 cm/s AV Area Cont Eq vti 0.8 cm squared AV Area Cont Eq pk 1.0 cm squared MV Area PHT 5.0 cm squared Mitral E to A Ratio 1.4 MV E' Velocity 16.0 cm/s Mitral E to MV E' Ratio 7.8 Mitral E to LV E' Lateral Ratio 5.8 Mitral E to LV E' Septal Ratio 12.0 TR Peak Velocity 304.0 cm/s TR Peak Gradient 37.0 mmHg TV Peak E Velocity 130.0 cm/s Right Atrial Pressure 3.0 mmHg Pulmonary Artery Systolic Pressu 40.0 mmHg PV Peak Velocity 123.0 cm/s FINDINGS Left Ventricle Normal left ventricular cavity size.Normal left ventricular wall thickness. Left ventricular ejection fraction is estimated at 60 %. No diagnostic regional wall motion abnormalities. Right Ventricle Normal right ventricular size and systolic function. Right ventricular systolic pressure 40 mmHg. Right Atrium Mildly increased right atrial size. Left Atrium Moderately increased left atrial size. Mitral Valve Mild mitral annular calcification. Mildly thickened mitral valve. No mitral valve stenosis. Moderate mitral valve regurgitation. Aortic Valve Mildly thickened and calcified trileaflet aortic valve. Mild aortic valve stenosis, peak velocity 2.9 m/s, peak gradient 34 mmHg, mean gradient 16.8 mmHg, RG 0.81 cm squared. Mild aortic valve regurgitation. Tricuspid Valve Structurally normal tricuspid valve. Mild tricuspid valve regurgitation. Pulmonic Valve Structurally normal pulmonic valve. No pulmonary valve stenosis. Trace pulmonary valve regurgitation. Pericardium No pericardial effusion. Aorta Normal aorta. CONCLUSIONS 1. Normal left ventricular cavity size, wall thickness and ejection fraction is estimated at 60 %. No regional wall motion abnormalities. 2. Normal right ventricular size and systolic function. 3. Moderate mitral valve regurgitation. 4. Mild pulmonary hypertension with pulmonary artery pressure estimated at 40 mmHg. 5. Mild aortic valve stenosis, peak velocity 2.9 m/s, mean gradient 16.8 mmHg, RG 0.81 cm squared. Mild aortic valve regurgitation. 6. No pericardial effusion. 7. No prior similar studies to compare. Yadira Holloway MD (Electronically Signed) Final Date: 20 April 2019 15:27 S
[2019-04-20] MEDS: ondansetron 2 mg/ML SDV 2 mL 4 MG IVP (20:20)
[2019-04-21] VITALS (19 sets, daily range): BP systolic 105–126; BP diastolic 61–75; PULSE 61–100; RESP 15–26; TEMP 36.1–36.6; O2SAT 3–98
[2019-04-21] MEDS: sodium chloride 3.5% neb 4 mL Neb INHALATION ×3 (02:31→20:13)
[2019-04-21] MEDS: ipratropium-albuterol 3 mL Neb INHALATION ×4 (02:32→20:13)
[2019-04-21] MEDS: morphine 4 mg/mL SDV 1 mL 2 MG IVP ×5 (03:04→23:24)
[2019-04-21] MEDS: piperacillin-tazobactam 3.375 GM in sodium chloride 0.9% (plus) 50 ML IV ×3 (04:00→20:30)
[2019-04-21] MEDS: ondansetron 2 mg/ML SDV 2 mL 4 MG IVP ×2 (04:51→11:42)
[2019-04-21 05:22] LABS: Basophils % 0.3 %; Eosinophils % 0.1 %; Hematocrit 38.1 % (37.0-47.0); Hemoglobin 11.9 g/dL (11.5-15.3); Lymphocytes # 0.7 10^3/uL (0.8-4.8); Lymphocytes % 7.3 %; Mean Corpuscular HGB Conc 31.2 g/dL (30.0-36.0); Mean Corpuscular Hemoglobin 30.6 pg (28.0-34.0); Mean Corpuscular Volume 97.9 fL (81-99); Mean Platelet Volume 10.6 fL (7.4-10.4); Monocytes % 9.9 %; Neutrophils # 7.9 10^3/uL (1.8-7.7); Neutrophils % 81.9 %; Nucleated Red Blood Cells % 0 %; Platelet Count 261 10^3/cmm (130-400); Red Blood Count 3.89 10^6/uL (4.1-5.3); Red Cell Distribution Width 16.8 % (12.1-15.1); White Blood Count 9.7 10^3/uL (4.0-10.0)
[2019-04-21] MEDS: HYDROcodone-acetaminophen 10-325 mg Tablet 1 TAB PO ×3 (05:28→20:49)
[2019-04-21 05:45] LABS: Alanine Aminotransferase 16 U/L (0-33); Albumin Level 2.3 g/dL (3.5-5.2); Alkaline Phosphatase 106 IU/L (35-105); Anion Gap 16.7 (5-19); Aspartate Amino Transferase 20 U/L (0-32); Blood Urea Nitrogen 13 mg/dL (8-23); Calcium 8.3 mg/dL (8.5-10.5); Carbon Dioxide 22 mmol/L (22-29); Chloride 105 mmol/L (98-107); Globulin 3.3 g/dL (1.3-4.6); Glucose 78 mg/dL (65-115); Potassium 3.7 mmol/L (3.5-5.1); Sodium 140 mmol/L (136-145); Total Bilirubin 0.4 mg/dL (0.15-1.2); Total Protein 5.6 g/dL (6.6-8.7)
[2019-04-21] MEDS: ranolazine (12HR) 500 mg Tablet PO ×2 (08:30→17:56)
[2019-04-21] MEDS: levothyroxine 88 mcg Tablet PO (08:30)
[2019-04-21] MEDS: docusate sodium 100 mg Capsule PO (08:30)
[2019-04-21] MEDS: clopidogrel 75 mg Tablet PO (08:30)
[2019-04-21] MEDS: ARIPiprazole 2 mg Tablet PO (08:30)
[2019-04-21] MEDS: dilTIAZem 30 mg Tablet PO ×3 (08:30→20:30)
[2019-04-21] MEDS: famotidine 20 mg/2 mL INJ IVP ×2 (08:30→19:44)
[2019-04-21] MEDS: vancomycin 1,000 MG in sodium chloride 0.9% 250 ML 250 MG IV (08:31)
[2019-04-21] MEDS: nicotine 21 mg Patch 1 PATCH TRANSDERMA (08:32)
[2019-04-21] MEDS: budesonide 0.5 mg/2 mL Neb INHALATION ×2 (09:07→20:13)
--- NOTE | 2019-04-21 11:05 | PC.CHAP ---
Pastoral Care Encounter/Spiritual Assessment Type of Contact [] Declined industrial safety and health specialist visit [] Patient/Family/Request visit [] Outpatient visit [] Follow-up visit [] Physician referral [] Code/Alert [x] Routine visit [] Staff referral [] Actively dying [] Patient sleeping [] Family support [] [] Out of room [] Palliative care [] [] Receiving care in room [] Pre-surgical visit [] Trauma [] Long length of stay [] ICU visit [] Other: Relational/Emotional Strength [x] Patient feels connected with others/family/visitors/staff [] Distress [] Loneliness/isolation [] Abandonment Spirituality of Patient [x] Person of Arianna [] Attends Judaism of their Arianna [x] Believes in Prayer [] Reads Bible or Anabaptist materials [] There are Spiritual issues to be addressed [employer] Architect Interventions [x] Prayer [x] Active listening [x] Non-anxious presence [x] Spiritual/emotional support [] Crisis/trauma care [] Spiritual counseling [] Bereavement support [] Provided bereavement packet [] Provided Bible/devotional materials [] Provided toy/stuffed animal, coloring book to patient or family member [] Provided Communion [] Anointing/Rebuck [] Salvation [x] Completed spiritual assessment [] Other: Impact on Illness or Injury [] Angry [] Fearful [] Anxious [] Often cries [] Exhaustion [] Unable to work [] Unable to attend synagogue [] Unable to walk/stand [] Unable to read [] Unable to drive [] Unable to eat/drink [] Unable to sleep [] Unable to be with family [] Patient intubated [x] Other: Pt is senior citizen with limited strength and mobility Summary Pt. feels much better and expects to go home soon. Bi Solutions Architect Azeb Chew Time spent with patient 7 minutes
[2019-04-21] MEDS: sodium chloride 0.9% 1,000 ML 75 ML IV (11:42)
--- NOTE | 2019-04-21 13:23 | P.PN_ITS ---
Subjective Subjective: Interval history: No acute events overnight. This morning on evaluation lying comfortably in bed. She states she is feeling a little better today as the pain is well controlled. She still looks tachypneic on examination. States her cough and shortness of breath has remai jerry the same. CT scan done yesterday showed small bowel obstruction. Has remained n.p.o. since then. Complains of mild nausea but no more vomiting. Vitals/I&O/Wt Last Vital Signs Temp 97.3 F L 04/21/19 11:30 Pulse 73 04/21/19 11:30 Resp 17 04/21/19 11:41 BP 110/61 04/21/19 11:30 Pulse Ox 4 L 04/21/19 11:41 04/20/19 04/21/19 04/21/19 22:59 06:59 14:59 Intake Total 1110 / 2472.5 70 / 2542.5 993.75 / 993.75 Output Total 300 / 300 Balance 810 / 2172.5 70 / 2242.5 993.75 / 993.75 Weight last 48 hrs Weight 62.823 kg Weight 62.284 kg Physical Exam Narrative: EXAM NARRATIVE: General: Mild acute distress because of tachypnea, AO x3, dehydrated HEENT: PERRLA, pupils bilaterally equal and reactive Chest: b/l bronchial breath sounds, Ant> POst, Left more thn right, Left upper zone and right lower zone and left lower zone with coarse crackles, Normal vesicular breath sounds, no added sounds, equal good air entry bilaterally CVS: S1-S2 regular,PSM at apex, apex displaced, no tachycardia, no gallops, no rubs Abdomen: Soft, distended, nontender, no organomegaly, bowel sounds present but sluggish Neuro: No focal deficits, no facial deformity, AO x3, power 5/5 in all limbs Data : 04/21/19 05:11 04/21/19 05:11 Micro: Microbiology 04/19/19 15:30 Blood Culture - Preliminary Blood NEGATIVE TO DATE 04/19/19 15:30 Blood Culture - Preliminary Blood NEGATIVE TO DATE 04/19/19 15:08 Stool Lactoferrin - Final Stool Enteric Pathogens (PCR) - Final Parasite Antigen Panel - Final Occult Blood (FIT) - Final 04/19/19 15:55 MRSA Culture - Final Nose A&P Assessment and plan (1) Weakness: Status: Acute Code(s): R53.1 - Weakness (2) Diarrhea: Status: Acute Code(s): R19.7 - Diarrhea, unspecified (3) Lung cancer: Status: Acute Code(s): C34.90 - Malignant neoplasm of unspecified part of unspecified bronchus or lung (4) COPD (chronic obstructive pulmonary disease): Status: Acute Code(s): J44.9 - Chronic obstructive pulmonary disease, unspecified (5) MELANIA (obstructive sleep apnea): Status: Acute Code(s): G47.33 - Obstructive sleep apnea (adult) (pediatric) (6) CAD (coronary artery disease): Status: Acute Code(s): I25.10 - Atherosclerotic heart disease of [place] coronary artery without angina pectoris (7) CLL (chronic lymphocytic leukemia): Status: Acute Code(s): C91.10 - Chronic lymphocytic leukemia of B-cell type not having achieved remission Additional A&P Information Weakness: Most likely multifactorial. Lung cancer with bilateral pneumonia and mucous plug. Along with multiple episodes of diarrhea, generalized severe deconditioning, severe protein energy malnutrition. B/l PNA/recent diagnosis of lung cancer/ COPD: We will need to get documents from [facility] regarding her diagnosis, chemoradiation therapy. C/w Vanc and Zosyn for now. Day 3 of treatment. Will de-escalate as per Cx results. Sputum Cx awaited. BCx negative prelim, procal elevated. Legionella and Bacterial antigen. CT chest concerning for mediastinal/left hilar perihilar mass which cannot be differentiated from left side of the esophagus which is most likely neoplastic and the mass effaces left main bronchus without definite invasion along with bilateral pneumonia and mucous plugging of bilateral lower lobe. DuoNebs [id number] , budesonide twice daily, saline nebulizations along with duo nebs, flutter valve. Discussed case with Dr. Jenkins. He states if patient needs further treatment or worsens patient would most likely need a bronchoscopy for possible stent placement. Patient would most likely have needed a CT scan later in the week but family today have decided to go hospice so for now we will hold off on any aggressive treatment. Pneumonia and mucous plug most likely due to mass-effect. Oxygen supplementation keeping saturation over 90%. Diarrhea: Most likely secondary to stomatitis from chemoradiation. Stool studies negative, except positive for lactoferrin and blood. Hb stable. CT abdomen shows SBO. Will advance diet to clear liquid and see how she does. Zofran as needed for nausea. CAD: S/P CABG and multiple PCI: Continue with home dose of statin, aspirin. Echocardiogram concerning for a normal EF of 60% with mild pulmonary hypertension with RVSP of 40 with dilated LA, RA with mild ,AI. C/w IVF- NS @ 100 cc/hr Hypertension: For now we will hold off on all antihypertensives to prevent hypotension as patient looks severely dehydrated. BP stable. Patient had 2 episodes of heart rate 1 g in 50s so we will decrease Cardizem from 60 mg, 4 times daily to 60 mg, 3 times daily. Telemetry monitoring. Severe protein energy malnutrition: We will add Glucerna to the diet with every meals. Dietary consultation. CC consult: For SNF placement as sister is not able to take care of her at home. CODE STATUS: Discussed in detail with the patient and family members at bedside. Patient states she would like to be DNR/DNI. Her sister would be her POA. Discussed in detail with the patient and her sister Ms. Waller at bedside regarding the goals of care and explained the findings on the CT abdomen and chest. Patient states she is already aware of her lung cancer and knows she wo uld need many more chemotherapy and radiation therapy treatment going forward and still the chance of cure would be 50-50. She states chemotherapy and radiation therapy makes her feel very weak and she does not think she will be able to go to the treatment to which her sister agreed and states that all she wants to do right now is remained comfortable so would want to transition over to hospice. Hospice referral has been put in the chart. Clear liquid diet today. Lovenox for DVT prophylaxis. Protonix for the PUD prophylaxis. Gaurded prognosis Attestations Medical Necessity Statement*: Lung cancer, bilateral pneumonia, SBO Time Spent in Patient Care: Greater than 35 minutes (>than 50% of time spent in counselling and/or direct pt care on unit) . Coding Level of Care Code Acute Client Service Associate for g Fwd Diagnoses Weakness R53.1 Diarrhea R19.7 Lung cancer C34.90 COPD (chronic obstructive pulmonary disease) J44.9 MELANIA (obstructive sleep apnea) G47.33 CAD (coronary artery disease) I25.10 CLL (chronic lymphocytic leukemia) C91.10
[2019-04-21] MEDS: LORazepam 2 mg/mL INJ 1 mL 0.5 MG IVP (17:43)
[2019-04-21] MEDS: enoxaparin 40 mg/0.4 mL Syringe SUBCUT (17:56)
[2019-04-22] VITALS (18 sets, daily range): BP systolic 90–130; BP diastolic 48–72; PULSE 62–100; RESP 16–22; TEMP 36.3–36.7; O2SAT 91–99
[2019-04-22] MEDS: ondansetron 2 mg/ML SDV 2 mL 4 MG IVP (00:18)
[2019-04-22] MEDS: sodium chloride 0.9% 1,000 ML 75 ML IV ×2 (00:28→14:36)
[2019-04-22] MEDS: HYDROcodone-acetaminophen 10-325 mg Tablet 1 TAB PO ×4 (01:23→17:31)
[2019-04-22] MEDS: vancomycin 1,000 MG in sodium chloride 0.9% 250 ML 250 MG IV ×2 (01:25→19:06)
[2019-04-22] MEDS: sodium chloride 3.5% neb 4 mL Neb INHALATION ×2 (02:42→21:30)
[2019-04-22] MEDS: ipratropium-albuterol 3 mL Neb INHALATION ×3 (02:42→21:30)
[2019-04-22] MEDS: morphine 4 mg/mL SDV 1 mL 2 MG IVP ×2 (03:32→23:04)
[2019-04-22] MEDS: piperacillin-tazobactam 3.375 GM in sodium chloride 0.9% (plus) 50 ML IV ×3 (05:40→20:41)
[2019-04-22] MEDS: LORazepam 2 mg/mL INJ 1 mL 0.5 MG IVP ×3 (08:35→23:45)
[2019-04-22] MEDS: famotidine 20 mg/2 mL INJ IVP ×2 (08:36→19:27)
[2019-04-22] MEDS: ARIPiprazole 2 mg Tablet PO (08:36)
[2019-04-22] MEDS: ranolazine (12HR) 500 mg Tablet PO ×2 (08:36→17:30)
[2019-04-22] MEDS: nicotine 21 mg Patch 1 PATCH TRANSDERMA (08:36)
[2019-04-22] MEDS: dilTIAZem 30 mg Tablet PO ×3 (08:36→20:41)
[2019-04-22] MEDS: clopidogrel 75 mg Tablet PO (08:36)
[2019-04-22] MEDS: levothyroxine 88 mcg Tablet PO (08:36)
--- NOTE | 2019-04-22 12:50 | PC.SOCIAL ---
IMM Page 2 of [facility] explained to patient's sister Latrice over the phone. She verbalizes understanding. Initialed, dated, and timed and placed in chart. Copy provided to patient's room.
--- NOTE | 2019-04-22 15:21 | PC.OT ---
OT DISCHARGED DUE TO PATIENT TRANSFERRING TO HOSPICE CARE
[2019-04-22] MEDS: enoxaparin 40 mg/0.4 mL Syringe SUBCUT (17:29)
--- NOTE | 2019-04-22 18:54 | P.PN_ITS ---
Subjective Subjective: Interval history: This morning patient was examined with family at bedside, patient is currently weak, fatigued, poor appetite, has complaints of generalized pain, is a bit anxious Currently family is working to transition her over to hospice, [facility] Currently patient is DNR/DNI, patient's family is okay with continuing current i nterventions for pneumonia, do not want any aggressive interventions, above all wanted to remain comfortable as possible, treat pain, treat anxiety Vitals/I&O/Wt Last Vital Signs Temp 97.3 F L 04/22/19 15:03 Pulse 62 04/22/19 15:03 Resp 18 04/22/19 15:03 BP 130/68 04/22/19 15:03 Pulse Ox 96 04/22/19 15:03 04/22/19 04/22/19 04/22/19 06:59 14:59 22:59 Intake Total 1007.5 / 3081.25 1530 / 1530 60 / 1590 Output Total 150 / 150 Balance 857.5 / 2931.25 1530 / 1530 60 / 1590 Weight last 48 hrs Weight 64.229 kg Weight 62.823 kg Physical Exam Const: COMMON NORMALS: no apparent distress GENERAL APPEARANCE: cooperative and frail appearing NUTRITIONAL APPEARANCE: thin and underweight ORIENTATION/CONSCIOUSNESS: Yes awake, Yes oriented to person and Yes oriented to place; not oriented to time HENMT: COMMON NORMALS: normocephalic HEAD & SCALP: normocephalic Neck/C-Spine: COMMON NORMALS: no JVD Resp: COMMON NORMALS: normal respiratory effort, no retractions, no use of accessory muscles and clear to auscultation bilaterally AUSCULTATION: clear to auscultation bilaterally Cardio: COMMON NORMALS: no JVD, regular rate, regular rhythm, S1 normal heart sound and S2 normal heart sound RATE: regular rate RHYTHM: regular rhythm HEART SOUNDS: S1 normal and S2 normal GI: COMMON NORMALS: normal to inspection, nondistended, normoactive bowel sounds, soft to palpation, non-tender and no hepatosplenomegaly PALPATION: Yes soft and Yes no hepatosplenomegaly Extremity: COMMON NORMALS: no calf tenderness Neuro: SENSORIUM/ORIENTATION: Yes oriented to person, Yes oriented to place and No oriented to time Psych: COMMON NORMALS: mental status grossly normal Data : 04/21/19 05:11 04/21/19 05:11 A&P Assessment and plan (1) Weakness: Status: Acute Code(s): R53.1 - Weakness (2) Diarrhea: Status: Acute Code(s): R19.7 - Diarrhea, unspecified (3) Lung cancer: Status: Acute Code(s): C34.90 - Malignant neoplasm of unspecified part of unspecified bronchus or lung (4) COPD (chronic obstructive pulmonary disease): Status: Acute Code(s): J44.9 - Chronic obstructive pulmonary disease, unspecified (5) MELANIA (obstructive sleep apnea): Status: Acute Code(s): G47.33 - Obstructive sleep apnea (adult) (pediatric) (6) CAD (coronary artery disease): Status: Acute Code(s): I25.10 - Atherosclerotic heart disease of [place] coronary artery without angina pectoris (7) CLL (chronic lymphocytic leukemia): Status: Acute Code(s): C91.10 - Chronic lymphocytic leukemia of B-cell type not having achieved remission Additional A&P Information Weakness: Most likely multifactorial. Lung cancer with bilateral pneumonia and mucous plug. Along with multiple episodes of diarrhea, generalized severe deconditioning, severe protein energy malnutrition. B/l PNA/recent diagnosis of lung cancer/ COPD: We will need to get documents from [facility] regarding her diagnosis, chemoradiation therapy. C/w Vanc and Zosyn for now. Day 4 of treatment. Culture results have been unremarkable, will de-escalate antibiotics after [address] chest concerning for mediastinal/left hilar perihilar mass which cannot be differentiated from left side of the esophagus which is most likely neoplastic and the mass effaces left main bronchus without definite invasion along with bilateral pneumonia and mucous plugging of bilateral lower lobe. DuoNebs [id number] , budesonide twice daily, saline nebulizations along with duo nebs, flutter valve. Discussed case with Dr. Jenkins. He states if patient needs further treatment or worsens patient would most likely need a bronchoscopy for possible stent placement. However patient's family does not want aggressive interventions. Patient would most likely have needed a CT scan later in the week but family today have decided to go hospice so for now we will hold off on any aggressive treatment. Pneumonia and mucous plug most likely due to mass-effect. Oxygen supplementation keeping saturation over 90%. Diarrhea: Most likely secondary to stomatitis from chemoradiation. Stool studies negative, except positive for lactoferrin and blood. Hb stable. CT abdomen shows SBO. Tolerating clear liquid diet well, will advance to GI soft Zofran as needed for nausea. CAD: S/P CABG and multiple PCI: Continue with home dose of statin, aspirin. Echocardiogram concerning for a normal EF of 60% with mild pulmonary hypert ension with RVSP of 40 with dilated LA, RA with mild ,AI. C/w IVF- NS at 100 cc/hr Hypertension: For now we will hold off on all antihypertensives to prevent hypotension as patient looks severely dehydrated. BP stable. Telemetry monitoring. Severe protein energy malnutrition: on Glucerna to the diet with every meals. Dietary consultation. CC consult: For SNF placement as sister is not able to take care of her at home. CODE STATUS: Discussed in detail with the patient and family members at bedside. Patient states she would like to be DNR/DNI. Her sister would be her POA. Patient's family is transitioning her to hospice, decision [facility] I discussed the case with Dr. Brantley who is her oncologist, who agrees with the plan GI soft Lovenox for DVT prophylaxis. Protonix for the PUD prophylaxis. Prognosis poor Attestations Medical Necessity Statement*: Patient requires hospitalization for pneumonia, transitioning to hospice Coding Level of Care Code Acute Ergonomic Specialist for Chg Fwd Diagnoses Weakness R53.1 Diarrhea R19.7 Lung cancer C34.90 COPD (chronic obstructive pulmonary disease) J44.9 MELANIA (obstructive sleep apnea) G47.33 CAD (coronary artery disease) I25.10 CLL (chronic lymphocytic leukemia) C91.10
[2019-04-22] MEDS: budesonide 0.5 mg/2 mL Neb INHALATION (21:34)
[2019-04-23] VITALS (18 sets, daily range): BP systolic 100–121; BP diastolic 63–89; PULSE 64–108; RESP 16–26; TEMP 36.3–36.5; O2SAT 90–96
[2019-04-23] MEDS: ipratropium-albuterol 3 mL Neb INHALATION ×4 (02:29→21:30)
[2019-04-23] MEDS: sodium chloride 3.5% neb 4 mL Neb INHALATION ×3 (02:29→21:30)
[2019-04-23] MEDS: morphine 4 mg/mL SDV 1 mL 2 MG IVP ×5 (03:09→23:54)
[2019-04-23] MEDS: ondansetron 2 mg/ML SDV 2 mL 4 MG IVP (03:09)
[2019-04-23] MEDS: piperacillin-tazobactam 3.375 GM in sodium chloride 0.9% (plus) 50 ML IV ×3 (04:30→21:44)
[2019-04-23] MEDS: sodium chloride 0.9% 1,000 ML 75 ML IV (06:06)
[2019-04-23] MEDS: dilTIAZem 30 mg Tablet PO ×3 (08:52→21:43)
[2019-04-23] MEDS: clopidogrel 75 mg Tablet PO (08:53)
[2019-04-23] MEDS: ARIPiprazole 2 mg Tablet PO (08:53)
[2019-04-23] MEDS: levothyroxine 88 mcg Tablet PO (08:53)
[2019-04-23] MEDS: nicotine 21 mg Patch 1 PATCH TRANSDERMA (08:54)
[2019-04-23] MEDS: ranolazine (12HR) 500 mg Tablet PO ×2 (08:54→17:58)
[2019-04-23] MEDS: famotidine 20 mg/2 mL INJ IVP ×2 (09:01→19:46)
[2019-04-23] MEDS: budesonide 0.5 mg/2 mL Neb INHALATION ×2 (09:08→21:31)
--- NOTE | 2019-04-23 11:18 | PM.PN ---
Subjective Subjective: Interval history: This morning patient continues to have a poor appetite, feeling weak, fatigued, is looking more short of breath, putting a little bit more diaphoretic, family is trying to figure out if she is good to go home with hospice versus a nursing jenni Vitals/I&O/Wt Last Vital Signs Temp 97.6 F 04/23/19 11:13 Pulse 84 04/23/19 11:13 Resp 16 04/23/19 11:13 BP 117/77 04/23/19 11:13 Pulse Ox 94 04/23/19 11:13 04/22/19 04/23/19 04/23/19 22:59 06:59 14:59 Intake Total 817.5 / 2347.5 772.5 / 3120.0 120 / 120 Balance 817.5 / 2347.5 772.5 / 3120.0 120 / 120 Weight last 48 hrs Weight 67.721 kg Weight 64.229 kg Physical Exam Const: COMMON NORMALS: no apparent distress GENERAL APPEARANCE: lethargic and ill appearing NUTRITIONAL APPEARANCE: cachectic and thin ORIENTATION/CONSCIOUSNESS: Yes awake, Yes oriented to person, Yes oriented to place and Yes lethargic; not oriented to time HENMT: COMMON NORMALS: normocephalic HEAD & SCALP: normocephalic Neck/C-Spine: COMMON NORMALS: no JVD Resp: COMMON NORMALS: normal respiratory effort EFFORT & INSPECTION: Yes tachypneic AUSCULTATION: rales and wheezes Cardio: COMMON NORMALS: no JVD, regular rate, regular rhythm, S1 normal heart sound and S2 normal heart sound RATE: regular rate RHYTHM: regular rhythm HEART SOUNDS: S1 normal and S2 normal GI: COMMON NORMALS: normal to inspection, nondistended, normoactive bowel sounds, soft to palpation, non-tender, no hepatosplenomegaly, no masses and no bruits PALPATION: Yes soft and Yes no hepatosplenomegaly Extremity: COMMON NORMALS: normal capillary refill, no clubbing, cyanosis or edema, no calf tenderness and no pedal edema Neuro: SENSORIUM/ORIENTATION: Yes oriented to person, Yes oriented to place, No oriented to time and Yes lethargic Psych: COMMON NORMALS: mental status grossly normal Data : 04/21/19 05:11 04/21/19 05:11 A&P Assessment and plan (1) Weakness: Status: Acute Code(s): R53.1 - Weakness (2) Diarrhea: Status: Acute Code(s): R19.7 - Diarrhea, unspecified (3) Lung cancer: Status: Acute Code(s): C34.90 - Malignant neoplasm of unspecified part of unspecified bronchus or lung (4) COPD (chronic obstructive pulmonary disease): Status: Acute Code(s): J44.9 - Chronic obstructive pulmonary disease, unspecified (5) MELANIA (obstructive sleep apnea): Status: Acute Code(s): G47.33 - Obstructive sleep apnea (adult) (pediatric) (6) CAD (coronary artery disease): Status: Acute Code(s): I25.10 - Atherosclerotic heart disease of [place] coronary artery without angina pectoris (7) CLL (chronic lymphocytic leukemia): Status: Acute Code(s): C91.10 - Chronic lymphocytic leukemia of B-cell type not having achieved remission Additional A&P Information Unfortunately patient's is clinically deteriorating, more short of breath, sounds more coarse, her prognosis is quite poor, if patient deteriorates any further will speak to the patient's family about making her comfort care in the hospital Weakness: Most likely multifactorial. Lung cancer with bilateral pneumonia and mucous plug. Along with multiple episodes of diarrhea, generalized severe deconditioning, severe protein energy malnutrition. B/l PNA/recent diagnosis of lung cancer/ COPD: We will need to get documents from [facility] regarding her diagnosis, chemoradiation therapy. C/w Vanc and Zosyn for now. Day 4 of treatment. Culture results have been unremarkable, will de-escalate antibiotics after [address] chest concerning for mediastinal/left hilar perihilar mass which cannot be differentiated from left side of the esophagus which is most likely neoplastic and the mass effaces left main bronchus without definite invasion along with bilateral pneumonia and mucous plugging of bilateral lower lobe. DuoNebs [id number] , budesonide twice daily, saline nebulizations along with duo nebs, flutter valve. Discussed case with Dr. Jenkins. He states if patient needs further treatment or worsens patient would most likely need a bronchoscopy for possible stent placement. However patient's family does not want aggressive interventions. Patient would most likely have needed a CT scan later in the week but family today have decided to go hospice so for now we will hold off on any aggressive treatment. Pneumonia and mucous plug most likely due to mass-effect. Oxygen supplementation keeping saturation over 90%. Diarrhea: Most likely secondary to stomatitis from chemoradiation. Stool studies negative, except positive for lactoferrin and blood. Hb stable. CT abdomen shows SBO. Tolerating clear liquid diet well, will advance to GI soft Zofran as needed for nausea. CAD: S/P CABG and multiple PCI: Continue with home dose of statin, aspirin. Echocardiogram concerning for a normal EF of 60% with mild pulmonary hypertension with RVSP of 40 with dilated LA, RA with mild ,AI. C/w IVF- NS at 100 cc/hr Hypertension: For now we will hold off on all antihypertensives to prevent hypotension as patient looks severely dehydrated. BP stable. Telemetry monitoring. Severe protein energy malnutrition: on Glucerna to the diet with every meals. Dietary consultation. CC consult: For SNF placement as sister is not able to take care of her at home. CODE STATUS: Discussed in detail with the patient and family members at bedside. Patient states she would like to be DNR/DNI. Her sister would be her POA. Patient's family is transitioning her to hospice, decision of home hospice versus hospice at the retirement I discussed the case with Dr. Brantley who is her oncologist, who agrees with the plan GI soft Lovenox for DVT prophylaxis. Protonix for the PUD prophylaxis. Prognosis poor Attestations Medical Necessity Statement*: Requires continued hospitalization due to pneumonia, being transition to hospice Coding Level of Care Code Acute Acquisitions Assistant for Chg Fwd Diagnoses Weakness R53.1 Diarrhea R19.7 Lung cancer C34.90 COPD (chronic obstructive pulmonary disease) J44.9 MELANIA (obstructive sleep apnea) G47.33 CAD (coronary artery disease) I25.10 CLL (chronic lymphocytic leukemia) C91.10
[2019-04-23] MEDS: HYDROcodone-acetaminophen 10-325 mg Tablet 1 TAB PO ×3 (13:24→21:43)
[2019-04-23] MEDS: vancomycin 1,000 MG in sodium chloride 0.9% 250 ML 250 MG IV (16:59)
[2019-04-23] MEDS: enoxaparin 40 mg/0.4 mL Syringe SUBCUT (17:59)
--- NOTE | 2019-04-23 22:08 | PC.NURSE ---
kadie continues to complain about pain even withon the 2 hous pain meds are given. doesnt keep time well for sukhwinder told the next one is due.
[2019-04-24] VITALS (21 sets, daily range): BP systolic 100–127; BP diastolic 68–82; PULSE 66–100; RESP 15–20; TEMP 35.8–36.8; O2SAT 91–97
[2019-04-24] MEDS: HYDROcodone-acetaminophen 10-325 mg Tablet 1 TAB PO ×4 (02:26→18:10)
[2019-04-24] MEDS: ipratropium-albuterol 3 mL Neb INHALATION ×4 (03:22→21:38)
[2019-04-24] MEDS: sodium chloride 3.5% neb 4 mL Neb INHALATION ×4 (03:22→21:38)
[2019-04-24] MEDS: morphine 4 mg/mL SDV 1 mL 2 MG IVP ×6 (05:11→20:46)
[2019-04-24] MEDS: piperacillin-tazobactam 3.375 GM in sodium chloride 0.9% (plus) 50 ML IV ×2 (05:11→14:27)
[2019-04-24] MEDS: budesonide 0.5 mg/2 mL Neb INHALATION ×2 (08:31→21:38)
[2019-04-24] MEDS: LORazepam 2 mg/mL INJ 1 mL 0.5 MG IVP ×3 (09:15→20:40)
[2019-04-24] MEDS: clopidogrel 75 mg Tablet PO (09:19)
[2019-04-24] MEDS: ARIPiprazole 2 mg Tablet PO (09:19)
[2019-04-24] MEDS: dilTIAZem 30 mg Tablet PO ×3 (09:19→20:36)
[2019-04-24] MEDS: ondansetron 2 mg/ML SDV 2 mL 4 MG IVP (09:20)
--- NOTE | 2019-04-24 09:20 | PC.SOCIAL ---
IMM Updated Page 2 of updated and given to patient. Initialed, dated, and timed and placed back in chart.
[2019-04-24] MEDS: famotidine 20 mg/2 mL INJ IVP ×2 (09:23→20:36)
[2019-04-24] MEDS: ranolazine (12HR) 500 mg Tablet PO ×2 (09:43→18:43)
[2019-04-24] MEDS: nicotine 21 mg Patch 1 PATCH TRANSDERMA (09:43)
[2019-04-24] MEDS: levothyroxine 88 mcg Tablet PO (09:43)
[2019-04-24] MEDS: vancomycin 1,000 MG in sodium chloride 0.9% 250 ML 250 MG IV (12:15)
--- NOTE | 2019-04-24 13:27 | PM.PN ---
Subjective Subjective: Interval history: Overnight patient had episodes of severe pain not well controlled IV morphine and [place], had episodes of agitation, did not sleep at all last night, she received an increased dose of morphine this morning, along with [place] and Ativan, currently is is sleeping, has increased work of breathing, sounds coarse, has episodes of tachypnea, patient's family is working on trying to get her to hospice but what remains uncertain is home hospice versus hospice at skilled nursing, what I hear from nurses at some family numbers are trying to take her to [place], and afraid that patient might deteriorate while here in the hospital before decision can be made, I advised nurse to let family know of her present condition, and we should have a family meeting hopefully in the next few days about possibly transitioning her to comfort care while she is here in the hospital, but now I will continue noninvasive interventions Vitals/I&O/Wt Last Vital Signs Temp 96.4 F L 04/24/19 12:00 Pulse 83 04/24/19 12:00 Resp 18 04/24/19 12:19 BP 127/82 04/24/19 12:00 Pulse Ox 96 04/24/19 12:00 04/23/19 04/24/19 04/24/19 22:59 06:59 14:59 Intake Total 780 / 1482.5 170 / 1652.5 120 / 120 Balance 780 / 1382.5 170 / 1552.5 120 / 120 Weight last 48 hrs Weight 67.631 kg Weight 67.721 kg Physical Exam Const: GENERAL APPEARANCE: ill appearing NUTRITIONAL APPEARANCE: cachectic and thin OTHER: Sleeping HENMT: COMMON NORMALS: normocephalic HEAD & SCALP: normocephalic Neck/C-Spine: COMMON NORMALS: no JVD Resp: EFFORT & INSPECTION: Yes uses accessory muscles and Yes audible wheezes AUSCULTATION: wheezes Cardio: COMMON NORMALS: no JVD, regular rate, regular rhythm, S1 normal heart sound and S2 normal heart sound RATE: regular rate RHYTHM: regular rhythm HEART SOUNDS: S1 normal and S2 normal GI: COMMON NORMALS: normal to inspection, nondistended, normoactive bowel sounds, soft to palpation, non-tender, no hepatosplenomegaly, no masses and no bruits PALPATION: Yes soft and Yes no hepatosplenomegaly Extremity: COMMON NORMALS: normal capillary refill, no clubbing, cyanosis or edema, no calf tenderness and no pedal edema Data : 04/21/19 05:11 04/21/19 05:11 A&P Assessment and plan (1) Weakness: Status: Acute Code(s): R53.1 - Weakness (2) Diarrhea: Status: Acute Code(s): R19.7 - Diarrhea, unspecified (3) Lung cancer: Status: Acute Code(s): C34.90 - Malignant neoplasm of unspecified part of unspecified bronchus or lung (4) COPD (chronic obstructive pulmonary disease): Status: Acute Code(s): J44.9 - Chronic obstructive pulmonary disease, unspecified (5) MELAINA (obstructive sleep apnea): Status: Acute Code(s): G47.33 - Obstructive sleep apnea (adult) (pediatric) (6) CAD (coronary artery disease): Status: Acute Code(s): I25.10 - Atherosclerotic heart disease of [place] coronary artery without angina pectoris (7) CLL (chronic lymphocytic leukemia): Status: Acute Code(s): C91.10 - Chronic lymphocytic leukemia of B-cell type not having achieved remission Additional A&P Information Unfortunately patient's is clinically deteriorating, more short of breath, sounds more coarse, her prognosis is quite poor, patient's family has been advised to meet me in the hospital the next 24 to 48 hours possibly transition her to hospice in the skilled nursing as her condition is deteriorating, but according to nursing staff and case workers family wants to take her home with hospice versus taking her to [place], if patient deteriorates any further will speak to the patient's family about making her comfort care in the hospital Weakness: Most likely multifactorial. Lung cancer with bilateral pneumonia and mucous plug. Along with multiple episodes of diarrhea, generalized severe deconditioning, severe protein energy malnutrition. B/l PNA/recent diagnosis of lung cancer/ COPD: We will need to get documents from [facility] regarding her diagnosis, chemoradiation therapy. C/w Vanc and Zosyn for now. Day 4 of treatment. Culture results have been unremarkable, will de-escalate antibiotics after [address] chest concerning for mediastinal/left hilar perihilar mass which cannot be differentiated from left side of the esophagus which is most likely neoplastic and the mass effaces left main bronchus without definite invasion along with bilateral pneumonia and mucous plugging of bilateral lower lobe. DuoNebs [id number] , budesonide twice daily, saline nebulizations along with duo nebs, flutter valve. Discussed case with Dr. Jenkins. He states if patient needs further treatment or worsens patient would most likely need a bronchoscopy for possible stent placement. However patient's family does not want aggressive interventions. Patient would most likely have needed a CT scan later in the week but family today have decided to go hospice so for now we will hold off on any aggressive treatment. Pneumonia and mucous plug most likely due to mass-effect. Oxygen supplementation keeping saturation over 90%. Diarrhea: Most likely secondary to stomatitis from chemoradiation. Stool studies negative, except positive for lactoferrin and blood. Hb stable. CT abdomen shows SBO. Tolerating clear liquid diet well, will advance to GI soft Zofran as needed for nausea. CAD: S/P CABG and multiple PCI: Continue with home dose of statin, aspirin. Echocardiogram concerning for a normal EF of 60% with mild pulmonary hypertension with RVSP of 40 with dilated LA, RA with mild ,AI. C/w IVF- NS at 100 cc/hr Hypertension: For now we will hold off on all antihypertensives to prevent hypotension as patient looks severely dehydrated. BP stable. Telemetry monitoring. Severe protein energy malnutrition: on Glucerna to the diet with every meals. Dietary consultation. CC consult: For SNF placement as sister is not able to take care of her at home. CODE STATUS: Discussed in detail with the patient and family members at bedside. Patient states she would like to be DNR/DNI. Her sister would be her POA. Patient's family is transitioning her to hospice, decision of home hospice versus hospice at the skilled nursing, leaning towards home hospice, some family members were to take her to [place], family has been notified for concerns of deterioration and possibility of transitioning her to hospice during this admission I discussed the case with Dr. Brantley who is her oncologist, who agrees with the plan GI soft Lovenox for DVT prophylaxis. Protonix for the PUD prophylaxis. Prognosis poor Attestations Medical Necessity Statement*: Requires continued hospitalization due to acute respiratory failure, transitioning to hospice Coding Level of Care Code Acute [employer] for Chg Fwd Diagnoses Weakness R53.1 Diarrhea R19.7 Lung cancer C34.90 COPD (chronic obstructive pulmonary disease) J44.9 MELANIA (obstructive sleep apnea) G47.33 CAD (coronary artery disease) I25.10 CLL (chronic lymphocytic leukemia) C91.10
[2019-04-24 16:31] LABS: Vancomycin Trough 27.2 ug/mL (10-15)
[2019-04-24] MEDS: enoxaparin 40 mg/0.4 mL Syringe SUBCUT (17:52)
[2019-04-24] MEDS: sodium chloride 0.9% 1,000 ML 75 ML IV (20:38)
[2019-04-25] VITALS (10 sets, daily range): BP systolic 116; BP diastolic 72; PULSE 73–97; RESP 19–26; TEMP 36.7; O2SAT 90–93
[2019-04-25] MEDS: piperacillin-tazobactam 3.375 GM in sodium chloride 0.9% (plus) 50 ML IV (01:06)
[2019-04-25] MEDS: morphine 4 mg/mL SDV 1 mL 2 MG IVP ×4 (01:15→11:07)
--- NOTE | 2019-04-25 01:17 | PC.NURSE ---
At this time bladder scan revealed 170
[2019-04-25 03:04] LABS: Vancomycin Random 17.6 ug/mL (20.0-40.0)
[2019-04-25] MEDS: sodium chloride 3.5% neb 4 mL Neb INHALATION (03:30)
[2019-04-25] MEDS: ipratropium-albuterol 3 mL Neb INHALATION ×2 (03:30→08:08)
--- NOTE | 2019-04-25 04:09 | PC.NURSE ---
Patient incontinent, small amount of urine in brief when changed.
[2019-04-25] MEDS: LORazepam 2 mg/mL INJ 1 mL 0.5 MG IVP (04:40)
[2019-04-25] MEDS: vancomycin 1,000 MG in sodium chloride 0.9% 250 ML 250 MG IV (05:24)
[2019-04-25] MEDS: budesonide 0.5 mg/2 mL Neb INHALATION (08:12)
[2019-04-25] MEDS: famotidine 20 mg/2 mL INJ IVP (10:01)
[2019-04-25] MEDS: morphine 4 mg/mL SDV 1 mL 1 MG IVP (13:17)
[2019-04-25] MEDS: LORazepam 2 mg/mL INJ 1 mL 1 MG IVP (14:26)
--- NOTE | 2019-04-25 16:08 | PM.PN ---
Subjective Subjective: Interval history: Patient's clinical condition has worsened, requires up to 6 L oxygen, is barely arousable, poor oral intake, increased work of breathing I believe that transitioning her to comfort care while in the hospital would be the best course of action, as medical interventions have proven to be ineffective, patient is not clinically improving, is suffering, pain is difficult to control. I also believe inpatient hospice would be the best course of action for the next 48 hours, until family makes a decision about hospice at home versus a [place] [facility]. I spoke to patient's son at bedside, daughter over the phone, I spoke to family about transitioning her to comfort care, patient family voiced understanding, all questions answered, all risks and benefits discussed, voiced understanding, agreed to proceed with comfort care. Comfort care orders were started, I advised patient family members to alert the entire family to come see her as her clinical condition is deteriorating, they stated that the family should arrive later on this evening and tomorrow morning. Vitals/I&O/Wt Last Vital Signs Temp 98.0 F 04/25/19 04:00 Pulse 97 04/25/19 08:13 Resp 24 H 04/25/19 13:17 BP 116/72 04/25/19 04:00 Pulse Ox 93 04/25/19 08:00 04/25/19 04/25/19 04/25/19 06:59 14:59 22:59 Intake Total 50 / 490 Balance 50 / 490 Weight last 48 hrs Weight 65.408 kg Weight 67.631 kg Physical Exam Const: COMMON NORMALS: no apparent distress GENERAL APPEARANCE: cooperative, lethargic, ill appearing and frail appearing NUTRITIONAL APPEARANCE: cachectic, thin and underweight ORIENTATION/CONSCIOUSNESS: Yes awake, Yes oriented to person, Yes oriented to place and Yes lethargic; not oriented to time OTHER: Sleeping HENMT: COMMON NORMALS: normocephalic HEAD & SCALP: normocephalic Neck/C-Spine: COMMON NORMALS: no JVD Resp: COMMON NORMALS: normal respiratory effort EFFORT & INSPECTION: Yes tachypneic, Yes uses accessory muscles and Yes audible wheezes AUSCULTATION: rales and wheezes Cardio: COMMON NORMALS: no JVD, regular rate, regular rhythm, S1 normal heart sound and S2 normal heart sound RATE: regular rate RHYTHM: regular rhythm HEART SOUNDS: S1 normal and S2 normal GI: COMMON NORMALS: normal to inspection, nondistended, normoactive bowel sounds, soft to palpation, non-tender, no hepatosplenomegaly, no masses and no bruits PALPATION: Yes soft and Yes no hepatosplenomegaly Extremity: COMMON NORMALS: normal capillary refill, no clubbing, cyanosis or edema, no calf tenderness and no pedal edema Neuro: SENSORIUM/ORIENTATION: Yes oriented to person, Yes oriented to place, No oriented to time and Yes lethargic Psych: COMMON NORMALS: mental status grossly normal Data : 04/21/19 05:11 04/21/19 05:11 Micro: Microbiology 04/19/19 15:30 Blood Culture - Final Blood NO GROWTH AFTER 5 DAYS 04/19/19 15:30 Blood Culture - Final Blood NO GROWTH AFTER 5 DAYS A&P Assessment and plan (1) Weakness: Status: Acute Code(s): R53.1 - Weakness (2) Diarrhea: Status: Acute Code(s): R19.7 - Diarrhea, unspecified (3) Lung cancer: Status: Acute Code(s): C34.90 - Malignant neoplasm of unspecified part of unspecified bronchus or lung (4) COPD (chronic obstructive pulmonary disease): Status: Acute Code(s): J44.9 - Chronic obstructive pulmonary disease, unspecified (5) MELANIA (obstructive sleep apnea): Status: Acute Code(s): G47.33 - Obstructive sleep apnea (adult) (pediatric) (6) CAD (coronary artery disease): Status: Acute Code(s): I25.10 - Atherosclerotic heart disease of [place] coronary artery without angina pectoris (7) CLL (chronic lymphocytic leukemia): Status: Acute Code(s): C91.10 - Chronic lymphocytic leukemia of B-cell type not having achieved remission Additional A&P Information Family agreeable to comfort care, will transition to comfort carel Weakness: Most likely multifactorial. Lung cancer with bilateral pneumonia and mucous plug. Along with multiple episodes of diarrhea, generalized severe deconditioning, severe protein energy malnutrition. B/l PNA/recent diagnosis of lung cancer/ COPD: We will need to get documents from [facility] regarding her diagnosis, chemoradiation therapy. C/w Vanc and Zosyn for now. Day 4 of treatment. Culture results have been unremarkable, will de-escalate antibiotics after [address] chest concerning for mediastinal/left hilar perihilar mass which cannot be differentiated from left side of the esophagus which is most likely neoplastic and the mass effaces left main bronchus without definite invasion along with bilateral pneumonia and mucous plugging of bilateral lower lobe. DuoNebs [id number] , budesonide twice daily, saline nebulizations along with duo nebs, flutter valve. Discussed case with Dr. Jenkins. He states if patient needs further treatment or worsens patient would most likely need a bronchoscopy for possible stent placement. However patient's family does not want aggressive interventions. Patient would most likely have needed a CT scan later in the week but family today have decided to go hospice so for now we will hold off on any aggressive treatment. Pneumonia and mucous plug most likely due to mass-effect. Oxygen supplementation keeping saturation over 90%. Diarrhea: Most likely secondary to stomatitis from chemoradiation. Stool studies negative, except positive for lactoferrin and blood. Hb stable. CT abdomen shows SBO. Tolerating clear liquid diet well, will advance to GI soft Zofran as needed for nausea. CAD: S/P CABG and multiple PCI: Continue with home dose of statin, aspirin. Echocardiogram concerning for a normal EF of 60% with mild pulmonary hypertension with RVSP of 40 with dilated LA, RA with mild ,AI. C/w IVF- NS at 100 cc/hr Hypertension: For now we will hold off on all antihypertensives to prevent hypotension as patient looks severely dehydrated. BP stable. Telemetry monitoring. Severe protein energy malnutrition: on Glucerna to the diet with every meals. Dietary consultation. CC consult: For SNF placement as sister is not able to take care of her at home. CODE STATUS: Discussed in detail with the patient and family members at bedside. Patient states she would like to be DNR/DNI. Her sister would be her POA. Patient's family is transitioning her to hospice, decision of home hospice versus hospice at the [place] [facility], leaning towards home hospice, some family members were to take her to [place], family has been notified for concerns of deterioration and possibility of transitioning her to hospice during this admission I discussed the case with Dr. Brantley who is her oncologist, who agrees with the plan GI soft Lovenox for DVT prophylaxis. Protonix for the PUD prophylaxis. Prognosis poor Attestations Medical Necessity Statement*: Transitioning to comfort care Coding Level of Care Code Acute Data Technician for Chg Fwd Diagnoses Weakness R53.1 Diarrhea R19.7 Lung cancer C34.90 COPD (chronic obstructive pulmonary disease) J44.9 MELANIA (obstructive sleep apnea) G47.33 CAD (coronary artery disease) I25.10 CLL (chronic lymphocytic leukemia) C91.10
[2019-04-25] MEDS: morphine 4 mg/mL SDV 1 mL 3 MG PO (16:46)
[2019-04-25] MEDS: LORazepam 2 mg/mL INJ 1 mL 1 MG PO ×2 (16:47→22:31)
--- NOTE | 2019-04-25 22:51 | PC.NURSE ---
Patient incontinent of urine, large amount of urine in brief.
[2019-04-26 04:13] VITALS: RESP 24
[2019-04-26] MEDS: LORazepam 2 mg/mL INJ 1 mL 1 MG PO ×4 (07:08→18:16)
[2019-04-26 08:11] VITALS: RESP 12
--- NOTE | 2019-04-26 15:34 | PC.SOCIAL ---
IM FOLLOW UP GIVEN AND EXPLAINED PATIENT IS COMFORT CARE AND WITH LABORED BREATHING DUSKY SKIN TONE. PATIENT IS CLOSE TO PASSING
[2019-04-26 15:47] VITALS: RESP 20
--- NOTE | 2019-04-26 17:49 | P.PN_ITS ---
Subjective Subjective: Interval history: This morning patient is alert and oriented x0, struggling to breathe, receiving morphine, Ativan, atropine, patient's family is at bedside, patient's family agreeable to comfort care, they are planning on taking her to [facility] for hospice, however they want to give her a couple of days in the hospital, I advised patient's family that my goal is to ease her pain and ease her suffering, but the process could take some time, but currently she is struggling to breathe, not fully responsive, not eating Vitals/I&O/Wt Last Vital Signs Temp 98.0 F 04/25/19 04:00 Pulse 97 04/25/19 08:13 Resp 20 H 04/26/19 15:47 BP 116/72 04/25/19 04:00 Pulse Ox 93 04/25/19 16:46 Weight last 48 hrs Weight 65.408 kg Physical Exam Const: COMMON NORMALS: negative for oriented x3 EXAM LIMITATIONS: altered mental status GENERAL APPEARANCE: lethargic, ill appearing and frail appearing NUTRITIONAL APPEARANCE: cachectic, thin and underweight ORIENTATION/CONSCIOUSNESS: Yes lethargic OTHER: Sleeping HENMT: COMMON NORMALS: normocephalic HEAD & SCALP: normocephalic Neck/C-Spine: COMMON NORMALS: no JVD Resp: COMMON NORMALS: normal respiratory effort EFFORT & INSPECTION: Yes tachypneic, Yes uses accessory muscles and Yes audible wheezes AUSCULTATION: rales and wheezes Cardio: COMMON NORMALS: no JVD, regular rate, regular rhythm, S1 normal heart sound and S2 normal heart sound RATE: regular rate RHYTHM: regular rhythm HEART SOUNDS: S1 normal and S2 normal GI: COMMON NORMALS: normal to inspection, nondistended, normoactive bowel sounds, soft to palpation, non-tender, no hepatosplenomegaly, no masses and no bruits PALPATION: Yes soft and Yes no hepatosplenomegaly Extremity: COMMON NORMALS: normal capillary refill, no clubbing, cyanosis or edema, no calf tenderness and no pedal edema Neuro: COMMON NORMALS: negative for oriented x3 SENSORIUM/ORIENTATION: Yes lethargic Data : 04/21/19 05:11 04/21/19 05:11 A&P Assessment and plan (1) Weakness: Status: Acute Code(s): R53.1 - Weakness (2) Diarrhea: Status: Acute Code(s): R19.7 - Diarrhea, unspecified (3) Lung cancer: Status: Acute Code(s): C34.90 - Malignant neoplasm of unspecified part of unspecified bronchus or lung (4) COPD (chronic obstructive pulmonary disease): Status: Acute Code(s): J44.9 - Chronic obstructive pulmonary disease, unspecified (5) MELANIA (obstructive sleep apnea): Status: Acute Code(s): G47.33 - Obstructive sleep apnea (adult) (pediatric) (6) CAD (coronary artery disease): Status: Acute Code(s): I25.10 - Atherosclerotic heart disease of chilkoot coronary artery without angina pectoris (7) CLL (chronic lymphocytic leukemia): Status: Acute Code(s): C91.10 - Chronic lymphocytic leukemia of B-cell type not having achieved re mission Additional A&P Information Family agreeable to comfort care, continue comfort care measures, atropine, morphine, patient family wants to take her to [facility] after Sunday Weakness: Most likely multifactorial. Lung cancer with bilateral pneumonia and mucous plug. Along with multiple episodes of diarrhea, generalized severe deconditioning, severe protein energy malnutrition. B/l PNA/recent diagnosis of lung cancer/ COPD: We will need to get documents from [facility] regarding her diagnosis, chemoradiation therapy. C/w Vanc and Zosyn for now. Day 4 of treatment. Culture results have been unremarkable, will de-escalate antibiotics after [address] chest concerning for mediastinal/left hilar perihilar mass which cannot be differentiated from left side of the esophagus which is most likely neoplastic and the mass effaces left main bronchus without definite invasion along with bilateral pneumonia and mucous plugging of bilateral lower lobe. DuoNebs [id number] , budesonide twice daily, saline nebulizations along with duo nebs, flutter valve. Discussed case with Dr. Jenkins. He states if patient needs further treatment or worsens patient would most likely need a bronchoscopy for possible stent plac ement. However patient's family does not want aggressive interventions. Patient would most likely have needed a CT scan later in the week but family today have decided to go hospice so for now we will hold off on any aggressive treatment. Pneumonia and mucous plug most likely due to mass-effect. Oxygen supplementation keeping saturation over 90%. Diarrhea: Most likely secondary to stomatitis from chemoradiation. Stool studies negative, except positive for lactoferrin and blood. Hb stable. CT abdomen shows SBO. Tolerating clear liquid diet well, will advance to GI soft Zofran as needed for nausea. CAD: S/P CABG and multiple PCI: Continue with home dose of statin, aspirin. Echocardiogram concerning for a normal EF of 60% with mild pulmonary hypertension with RVSP of 40 with dilated LA, RA with mild ,AI. C/w IVF- NS at 100 cc/hr Hypertension: For now we will hold off on all antihypertensives to prevent hypotension as patient looks severely dehydrated. BP stable. Telemetry monitoring. Severe protein energy malnutrition: on Glucerna to the diet with every meals. Dietary consultation. CC consult: For SNF placement as sister is not able to take care of her at home. CODE STATUS: Discussed in detail with the patient and family members at bedside. Patient states she would like to be DNR/DNI. Her sister would be her POA. Patient's family is transitioning her to hospice, decision of home hospice versus hospice at the shelter, leaning towards home hospice, some family me mbers were to take her to [facility], family has been notified for concerns of deterioration and possibility of transitioning her to hospice during this admission I discussed the case with Dr. Brantley who is her oncologist, who agrees with the plan GI soft Lovenox for DVT prophylaxis. Protonix for the PUD prophylaxis. Prognosis poor Attestations Medical Necessity Statement*: Requires continued hospitalization for comfort care Coding Level of Care Code Acute Med Care Manager for [facility] Fwd Diagnoses Weakness R53.1 Diarrhea R19.7 Lung cancer C34.90 COPD (chronic obstructive pulmonary disease) J44.9 MELANIA (obstructive sleep apnea) G47.33 CAD (coronary artery disease) I25.10 CLL (chronic lymphocytic leukemia) C91.10
[2019-04-26 18:16] VITALS: RESP 16
--- NOTE | 2019-04-26 18:52 | PC.NURSE ---
Family alerted RN that they thought their mother had . 2 RNs verified the patient had no cardiac activity and no respirations. Time of was 1844. Physician was notified and the Registered Nurse Obstetrics was notified.
--- NOTE | 2019-04-26 19:23 | P.DES_ITS ---
Discharge Providers DDS Date of Admission: 04/19/19 14:57 Date Summary Completed: 04/26/19 Attending Provider at Admission: Henrry Phelps MD Time of : 18:45 Attending Provider at Discharge: Pito Edwards MD DS Diagnoses Hospital Diagnoses (1) Weakness: (2) Diarrhea: (3) Lung cancer: (4) COPD (chronic obstructive pulmonary disease): (5) MELANIA (obstructive sleep apnea): (6) CAD (coronary artery disease): (7) CLL (chronic lymphocytic leukemia): Reason for Visit Reason for Visit: Reason For Visit: LUNG/STOMACH CA Summary Date and Time of : Date of : 04/26/19 Time of : 18:45 Summary: Summary: Ayala Kulkarni is a 78 year old female with past medical history of CAD post multiple PCI and CABG, peripheral arterial disease both peripheral angioplasty, COPD, obstructive sleep apnea, hypertension, CLL, hypothyroidism, dyslipidemia, fibromyalgia who as per the family was recently diagnosed of a lung cancer 1 month ago and is undergoing chemotherapy post 2 cycles with last cycle 3 weeks ago, radiation therapy post 5 cycles will last treatment 2 days ago at [facility]. As per the family patient was at a retirement in [place]. 2 days ago from where she was discharged as per family's request and was brought home at the think she was not being properly taken care of at the facility. Patient's sister who is her caregiver and POA brought her to the ER as she was not able to take care of her at home. Patient was admitted for bilateral pneumonia, recent diagnosis of lung cancer, COPD was started on broad-spectrum antibiotics vancomycin and Zosyn, nebulizer treatments, oxygen therapy, and IV fluids. Patient was DNR/DNI. Repeat imaging of patient's chest showed mediastinal/left perihilar mass which cannot be differentiated from the left side of the esophagus which is most likely neoplastic and mass-effect on the left bronchus without definite invasion, Dr. Jenkins advised that if patient's condition worsen, she likely require bronchoscopy for possible stent placement, however patient's family did not want aggressive interventions. Patient's condition gradually deteriorated, she became more short of breath, more diaphoretic, persistent cough, more weak, fatigued, tired, poor oral intake despite optimal medical therapy. Unfortunately patient mentation worsened, was barely arousable at times, and from thereon all of her decisions were made by her family members. According to family members her desires were that she wanted to remain comfortable, she did not want aggressive measures, she did not want heroic efforts, she wanted to pass away comfortably. After discussion the risk and benefits, patient's family agreed to hospice, all questions answered, voiced understanding, proceed to hospice with family still making a decision about outpatient hospice versus hospice as a retirement. Unfortunately patient's condition started to deteriorate even further, she is fairly lethargic, agitated, alert oriented x0, and decisions were made to make her comfort care as inpatient, while family decided on the location of hospice care. Patient's family agreed on inpatient comfort care, all questions answered, voiced understanding, agreed to proceed. On 04/26/2019, at 1845 PM patient . Additional Data: Family: at bedside Attending/PCP notified?: Attending notified Advance directives?: Yes Hospice patient?: Yes Discharge Plan Discharge Patient Disposition: Condition: Stable Prescriptions: Discontinued cetirizine [Allergy Relief (cetirizine)] 10 mg tablet 10 mg PO QDAY PRN (Reason: allergy symptoms) Qty: 90 RF: 4 albuterol sulfate 2.5 mg /3 mL (0.083 %) Solution For Nebulization 2.5 mg INHALATION Q4H PRN (Reason: Shortness Of Breath) RF: 0 isosorbide mononitrate 30 mg Tablet Extended Release 24 Hr 30 mg PO DAILY RF: 0 clopidogrel 75 mg tablet 75 mg PO DAILY RF: 0 hydrocodone-acetaminophen 10-325 mg Tablet 1 tab PO Q6H PRN (Reason: Pain) RF: 0 venlafaxine 100 mg tablet 100 mg PO DAILY RF: 0 levothyroxine 88 mcg tablet 88 mcg PO DAILY RF: 0 potassium chloride 20 mEq tablet,ER particles/crystals 20 meq PO DAILY RF: 0 amlodipine 10 mg tablet 10 mg PO DAILY RF: 0 pantoprazole 40 mg tablet,delayed release (DR/EC) 40 mg PO BID RF: 0 lisinopril 10 mg tablet 10 mg PO DAILY RF: 0 nitroglycerin 0.4 mg tablet, sublingual 0.4 mg sublingual Q5M PRN (Reason: Chest Pain) RF: 0 diltiazem HCl 120 mg capsule,extended release 24hr 120 mg PO DAILY RF: 0 ergocalciferol (vitamin D2) 1,250 mcg (50,000 unit) Capsule 1,250 mcg PO Q7D RF: 0 albuterol sulfate 90 mcg/actuation HFA aerosol inhaler 1 puff INHALATION Q4H PRN (Reason: Shortness Of Breath) RF: 0 rosuvastatin 10 mg tablet 10 mg PO DAILY RF: 0 ranolazine 500 mg Tablet Extended Release 12 Hr 500 mg PO BID RF: 0 Advair HFA 115-21 mcg/actuation HFA aerosol inhaler 1 puff INHALATION BID RF: 0 aripiprazole 2 mg tablet 2 mg PO DAILY RF: 0 Discharge Orders: Discharge Order (Routine); Ordered 04/26/19 Ordered By: Pito LOMBARDO Attestations Time Spent in /Discharge Care*: greater than 30 min Quality - AMI: AMI present?: No Quality - Stroke: CVA present?: No Quality - VTE: VTE present?: No Deep Vein Thrombosis/Pulmonary Embolism Present on Admission: No Coding Level of Care Code Acute Junk Removal Specialist for [facility] Fwd Diagnoses Weakness R53.1 Diarrhea R19.7 Lung cancer C34.90 COPD (chronic obstructive pulmonary disease) J44.9 MELANIA (obstructive sleep apnea) G47.33 CAD (coronary artery disease) I25.10 CLL (chronic lymphocytic leukemia) C91.10
--- NOTE | 2019-04-26 22:32 | PC.NURSE ---
[facility] representative arrived to take patient. Paperwork signed.
== END 2019-04-26 22:37 | disposition expired | DRG 193 ==
LOC: ER 13:05 → MEDSURG 15:19
PROVIDERS: Admitting Provider Student in an Organized Health Care Education/Training Program; Emergency Provider Family Medicine; Family Provider Family Medicine; Visit Provider Family Medicine
DX: J18.9 Pneumonia, unspecified organism (principal); E43 Unspecified severe protein-calorie malnutrition; J96.01 Acute respiratory failure with hypoxia; C91.10 Chronic lymphocytic leukemia of B-cell type not having achieved remission; C34.90 Malignant neoplasm of unspecified part of unspecified bronchus or lung; K56.609 Unspecified intestinal obstruction, unspecified as to partial versus complete obstruction; K52.1 Toxic gastroenteritis and colitis; I25.10 Atherosclerotic heart disease of native coronary artery without angina pectoris; Z95.5 Presence of coronary angioplasty implant and graft; I73.9 Peripheral vascular disease, unspecified; Z95.820 Peripheral vascular angioplasty status with implants and grafts; J44.9 Chronic obstructive pulmonary disease, unspecified; G47.33 Obstructive sleep apnea (adult) (pediatric); I10 Essential (primary) hypertension; E03.9 Hypothyroidism, unspecified; E78.5 Hyperlipidemia, unspecified; M79.7 Fibromyalgia; Z79.899 Other long term (current) drug therapy; Z92.3 Personal history of irradiation; Z87.891 Personal history of nicotine dependence; R53.1 Weakness; Z68.25 Body mass index [BMI] 25.0-25.9, adult; Z51.5 Encounter for palliative care; Z66 Do not resuscitate; E86.0 Dehydration; T45.1X5A Adverse effect of antineoplastic and immunosuppressive drugs, initial encounter
CPT/HCPCS: 12345; 36415; 51798; 71045; 71275; 74177; 80053; 80202; 81001; 82274; 83540; 83550; 83630; 83690; 83735; 84100; 84134; 84145; 84439; 84443; 84481; 85025; 86403; 87040; 87449; 87493; 87505; 87641; 87804; 93306; 94640; 96372; 96375; 97166; 99283; J0456; J1650; J1956; J2060; J2270; J2405; J2543; J3370; J3490; J7030; J7040; J7050; J7611; J7626; Q9967